=== PATIENT | female | born 1955 | race Two or more races ===

== ENCOUNTER 2019-02-08 16:32 | Inpatient (IN) | payer MEDICARE, OTHER ==
[~2019-02-08] VITALS: Ht 157.5 cm; Wt 83.9 kg
[2019-02-08 17:20] VITALS: BP 137/72
--- NOTE | 2019-02-08 17:20 | NUR ---
ED Nurse Note: Patient was sent by Dr. Singh for eval and admit for abd pain and vomiting. Lower back pain and rash. Patient is moaning in pain. Denies nausea and diarrhea. Afebrile. No SOB.
--- NOTE | 2019-02-08 18:15 | NUR ---
ED Nurse Note: Pt taken for CT.
--- NOTE | 2019-02-08 18:35 | NUR ---
ED Nurse Note: Pt came back from CT.
[2019-02-08 18:52] LABS: APPEARANCE,URINE CLEAR; BILIRUBIN, URINE NEGATIVE (NEGATIVE); COLOR,URINE PALE YELLOW; GLUCOSE, URINE (UA) NEGATIVE (NEGATIVE); KETONES,URINE NEGATIVE (NEGATIVE); LEUKOCYTE ESTERASE ,URINE 2+ (NEGATIVE); NITRITE,URINE NEGATIVE (NEGATIVE); PH,URINE 6 (4.5-8.0); PROTEIN,URINE NEGATIVE (NEGATIVE); UROBILINOGEN,URINE NORMAL MG/DL (0.0-1.0)
[2019-02-08 18:55] LABS: BASOPHILS % (AUTO) 2.1 % (0.0-2.0); EOSINOPHILS % (AUTO) 1.5 % (0.0-3.0); HEMATOCRIT 39.3 % (37.0-47.0); LYMPHOCYTES % (AUTO) 30.1 % (20.0-45.0); MEAN CORPUSCULAR VOLUME 87 FL (80-99); MONOCYTES % (AUTO) 6.1 % (1.0-10.0); NEUTROPHILS % (AUTO) 60.1 % (45.0-75.0); PLATELET COUNT 184 K/UL (150-450); RED BLOOD COUNT 4.53 M/UL (4.20-5.40); WHITE BLOOD COUNT 9.8 K/UL (4.8-10.8)
[2019-02-08] MEDS ORDERED: LIDODERM700 M1 TOPIC (19:06)
[2019-02-08] MEDS ORDERED: ALPRAZOLAM1 M2 ORAL (19:06)
[2019-02-08] MEDS ORDERED: BACLOFEN10 MG ORAL (19:06)
[2019-02-08] MEDS ORDERED: SEROQUEL50 MG ORAL (19:06)
[2019-02-08] MEDS ORDERED: BACLOFEN5 MG PO (19:06)
[2019-02-08] MEDS ORDERED: ACETAMINOPHEN650 M2 ORAL (19:06)
[2019-02-08 19:08] LABS: ANION GAP 11 mmol/L (5-15); BLOOD UREA NITROGEN 15 mg/dL (7-18); CALCIUM 8.8 MG/DL (8.5-10.1); CARBON DIOXIDE 25 MMOL/L (21-32); CHLORIDE 104 MMOL/L (98-107); CREATININE 0.7 MG/DL (0.55-1.30); POTASSIUM 3.9 MMOL/L (3.5-5.1); SODIUM 140 MMOL/L (136-145)
[2019-02-08 19:12] LABS: ALANINE AMINOTRANSFERASE 33 U/L (12-78); ALBUMIN 3.9 G/DL (3.4-5.0); ALBUMIN/GLOBULIN RATIO 1.2 (1.0-2.7); ALKALINE PHOSPHATASE 84 U/L (46-116); ASPARTATE AMINO TRANSFERASE 22 U/L (15-37); BILIRUBIN,TOTAL 0.5 MG/DL (0.2-1.0)
--- NOTE | 2019-02-08 19:21 | NUR ---
HAND-OFF: Report given to Trish SANTIAGO.
[2019-02-08 19:30] VITALS: BP 132/72
[2019-02-08] MEDS ORDERED: HYDROmorphone 1mg/ml Carpuject ONE (19:45)
[2019-02-08] MEDS ORDERED: HYDROmorphone 1mg/ml Carpuject IVP ONE (19:45)
[2019-02-08] MEDS ORDERED: DiphenhydrAMINE 50mg/ml Inj IVP ONE (19:45)
[2019-02-08] MEDS ORDERED: DiphenhydrAMINE 50mg/ml Inj ONE (19:46)
--- NOTE | 2019-02-08 20:07 | Emergency Room Report ---
History of Present Illness General Chief Complaint: General Complaint Source: Patient Present Illness HPI Patient presents with complaints of mid abdominal pain bloating sensation Patient reports that she has had stenting done before in the pancreas where there was seen as having a cyst patient has been having Abdominal problems for the past 3 to 4 years however reports that more recently over the past several days has had increased pain Vomiting denies any lower abdominal pain She reports chills denies any focal weakness or trauma Allergies: Coded Allergies: ACETAMINOPHEN (Verified Allergy, Unknown, 02/08/19) ARIPIPRAZOLE (Verified Allergy, Unknown, 02/08/19) FLUOXETINE (Verified Allergy, Unknown, 02/08/19) HYDROCODONE (Verified Allergy, Unknown, 02/08/19) IBUPROFEN (Verified Allergy, Unknown, 02/08/19) NITROFURANTOIN (Verified Allergy, Unknown, 02/08/19) OXYCODONE (Verified Allergy, Unknown, 02/08/19) PREGABALIN (Verified Allergy, Unknown, 02/08/19) Patient History Past Medical History: see triage record Reviewed Nursing Documentation: PMH: Agreed; PSxH: Agreed Nursing Documentation-PMH Past Medical History: No History, Except For Hx Cardiac Problems: No - diverticilois pancriatitis prolapsed colon and bladder Hx Hypertension: No - fibromyalgia spinal stenosis. 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 Review of Systems All Other Systems: negative except mentioned in HPI Physical Exam Vital Signs Date Time Temp Pulse Resp B/P (MAP) Pulse Ox O2 Delivery O2 Flow Rate FiO2 02/08/19 17:14 98.1 59 18 137/72 (93) 95 Room Air Sp02 EP Interpretation: reviewed, normal General Appearance: mild distress - Appears in pain Head: normocephalic, atraumatic Eyes: bilateral eye PERRL ENT: EOM grossly intact Neck: supple Respiratory: lungs clear, no respiratory distress, no retraction Cardiovascular #1: regular rate, rhythm Gastrointestinal: tenderness - Mid abdominal and epigastric region Genitourinary: no CVA tenderness Musculoskeletal: normal inspection Neurologic: alert, oriented x3 Psychiatric: normal inspection Skin: no rash Lymphatic: no adenopathy Medical Decision Making Diagnostic Impression: Primary Impression: Pancreatitis ER Course With the history exam and presentation, multiple differentials considered, including but not limited to appendicitis, gastritis, cholecystitis, diverticulitis Patient's blood work reveals elevated lipase count CT imaging is also obtained Patient's pain is better controlled with pain medication and patient admitted for further care Labs Test 02/08/19 18:26 White Blood Count 9.8 K/UL (4.8-10.8) Red Blood Count 4.53 M/UL (4.20-5.40) Hemoglobin 14.0 G/DL (12.0-16.0) Hematocrit 39.3 % (37.0-47.0) Mean Corpuscular Volume 87 FL (80-99) Mean Corpuscular Hemoglobin 30.9 PG (27.0-31.0) Mean Corpuscular Hemoglobin Concent 35.5 G/DL (32.0-36.0) Red Cell Distribution Width 11.0 % (11.6-14.8) Platelet Count 184 K/UL (150-450) Mean Platelet Volume 7.9 FL (6.5-10.1) Neutrophils (%) (Auto) 60.1 % (45.0-75.0) Lymphocytes (%) (Auto) 30.1 % (20.0-45.0) Monocytes (%) (Auto) 6.1 % (1.0-10.0) Eosinophils (%) (Auto) 1.5 % (0.0-3.0) Basophils (%) (Auto) 2.1 % (0.0-2.0) Urine Color Pale yellow Urine Appearance Clear Urine pH 6 (4.5-8.0) Urine Specific [place] 1.015 (1.005-1.035) Urine Protein Negative (NEGATIVE) Urine Glucose (UA) Negative (NEGATIVE) Urine Ketones Negative (NEGATIVE) Urine Blood 3+ (NEGATIVE) Urine Nitrite Negative (NEGATIVE) Urine Bilirubin Negative (NEGATIVE) Urine Urobilinogen Normal MG/DL (0.0-1.0) Urine Leukocyte Esterase 2+ (NEGATIVE) Urine RBC 2-4 /HPF (0 - 2) Urine WBC 0-2 /HPF (0 - 2) Urine Squamous Epithelial Cells Occasional /LPF Urine Bacteria Occasional /HPF (NONE) Sodium Level 140 MMOL/L (136-145) Potassium Level 3.9 MMOL/L (3.5-5.1) Chloride Level 104 MMOL/L (98-107) Carbon Dioxide Level 25 MMOL/L (21-32) Anion Gap 11 mmol/L (5-15) Blood Urea Nitrogen 15 mg/dL (7-18) Creatinine 0.7 MG/DL (0.55-1.30) Estimat Glomerular Filtration Rate > 60 mL/min (>60) Glucose Level 90 MG/DL (74-106) Calcium Level 8.8 MG/DL (8.5-10.1) Total Bilirubin 0.5 MG/DL (0.2-1.0) Aspartate Amino Transf (AST/SGOT) 22 U/L (15-37) Alanine Aminotransferase (ALT/SGPT) 33 U/L (12-78) Alkaline Phosphatase 84 U/L (46-116) Total Protein 7.1 G/DL (6.4-8.2) Albumin 3.9 G/DL (3.4-5.0) Globulin 3.2 g/dL Albumin/Globulin Ratio 1.2 (1.0-2.7) Lipase 961 U/L (73-393) Rhythm Strip Diag. Results EP Interpretation: yes Rate: 77 Rhythm: NSR, no PVC's, no ectopy CT/MRI/US Diagnostic Results CT/MRI/US Diagnostic Results : Impression CT abdomen pelvisImpression: No definite acute abnormality Fatty liver 4 mm nodule right costophrenic sulcus. No further follow-up necessary if there is no significant smoking history or risk factors for lung carcinoma. Recommend 6-12 month interval follow-up CT if there is significant smoking history Colonic diverticulosis. No evidence of diverticulitis Evidence of prior hysterectomy and cholecystectomy Tiny left renal angiomyolipoma Last Vital Signs Date Time Temp Pulse Resp B/P (MAP) Pulse Ox O2 Delivery O2 Flow Rate FiO2 02/08/19 17:20 59 18 Room Air 02/08/19 17:20 98.1 137/72 95 Status: improved Disposition: ADMITTED INPATIENT Condition: Serious Referrals: Yamil Singh MD (PCP) Corie Carrion DO Feb 08, 2019 20:07
--- NOTE | 2019-02-08 21:16 | NUR ---
ED Nurse Note: report given to Sarbjit SANTIAGO. endorsed all plan of care to him.
--- NOTE | 2019-02-08 21:30 | NUR ---
NURSE NOTES: Received patient via gurney. A/O x4. Ambulatory with assist. Patient reports pain in the abdominal area radiating to the lower back. Patient is on room air. No respiratory distress noted. Belongings list verified. Iv in the Left hand intact with no redness or swelling.
[2019-02-08 21:35] VITALS: BP 159/78
[2019-02-08] MEDS ORDERED: LORazepam Inj 2mg/ml 1ml IV PRN (22:30)
[2019-02-08] MEDS ORDERED: Nitroglycerin Subl 0.4mg tab SL PRN (22:30)
[2019-02-08] MEDS ORDERED: DiphenhydrAMINE 50mg/ml Inj IVP PRN (23:15)
[2019-02-08] MEDS: D5 1/2NS 1,000 ML IV SCH (23:32)
[2019-02-08] MEDS: Miralax 17gm pkt ORAL PRN (23:36)
[2019-02-08] MEDS: HYDROmorphone 1mg/ml Carpuject IVP PRN (23:41)
[2019-02-09] VITALS: BP 136/67
[2019-02-09] MEDS: HYDROmorphone 1mg/ml Carpuject IVP PRN ×2 (03:41→20:06)
[2019-02-09 03:49] VITALS: BP 120/63
[2019-02-09] MEDS: Pantoprazole Inj IV SCH (05:34)
[2019-02-09] MEDS: Hydromorphone 0.5mg/0.5ml inj IVP PRN ×3 (05:37→15:13)
[2019-02-09 06:03] LABS: BASOPHILS % (AUTO) 1.5 % (0.0-2.0); HEMATOCRIT 36.9 % (37.0-47.0); HEMOGLOBIN 13.3 G/DL (12.0-16.0); LYMPHOCYTES % (AUTO) 36.2 % (20.0-45.0); MEAN CORPUSCULAR VOLUME 87 FL (80-99); MONOCYTES % (AUTO) 10.9 % (1.0-10.0); NEUTROPHILS % (AUTO) 49.5 % (45.0-75.0); PLATELET COUNT 151 K/UL (150-450); RED BLOOD COUNT 4.24 M/UL (4.20-5.40); RED CELL DISTRIBUTION WIDTH 11.1 % (11.6-14.8); WHITE BLOOD COUNT 5.9 K/UL (4.8-10.8)
[2019-02-09 06:13] LABS: ALANINE AMINOTRANSFERASE 29 U/L (12-78); ALBUMIN 3.4 G/DL (3.4-5.0); ALKALINE PHOSPHATASE 71 U/L (46-116); AMYLASE 115 U/L (25-115); ANION GAP 7 mmol/L (5-15); ANION GAP 8 mmol/L (5-15); ASPARTATE AMINO TRANSFERASE 20 U/L (15-37); BILIRUBIN,TOTAL 0.5 MG/DL (0.2-1.0); BLOOD UREA NITROGEN 12 mg/dL (7-18); BLOOD UREA NITROGEN 13 mg/dL (7-18); CALCIUM 8.5 MG/DL (8.5-10.1); CALCIUM 8.6 MG/DL (8.5-10.1); CARBON DIOXIDE 27 MMOL/L (21-32); CARBON DIOXIDE 28 MMOL/L (21-32); CHLORIDE 105 MMOL/L (98-107); CHLORIDE 106 MMOL/L (98-107); CREATININE 0.7 MG/DL (0.55-1.30); PHOSPHORUS 4.2 MG/DL (2.5-4.9); POTASSIUM 3.8 MMOL/L (3.5-5.1); POTASSIUM 4.1 MMOL/L (3.5-5.1); SODIUM 140 MMOL/L (136-145); SODIUM 141 MMOL/L (136-145)
--- NOTE | 2019-02-09 07:30 | NUR ---
HAND-OFF: Report given to Malinda SANTIAGO.
--- NOTE | 2019-02-09 07:34 | NUR ---
NURSE NOTES: Pt complaining of pain as sheet writer entered room. " I feel like shit; I a have been throwing up all night my neck hurts" Per report pt vomited x 1 . Has a small amount of vomitus, at bed side yellow in color no odor. Current plan will be followed
[2019-02-09 08:00] VITALS: BP 131/66
[2019-02-09] MEDS: ALPRAZolam 0.5mg tab ORAL PRN ×2 (08:53→17:10)
[2019-02-09] MEDS: Metoclopramide 10mg/2ml Inj IVP PRN ×2 (08:54→17:10)
[2019-02-09] MEDS: Heparin 5000 units/ml inj SUBQ SCH ×2 (09:00→20:18)
--- NOTE | 2019-02-09 09:28 | Diagnostic Imaging Report ---
Indication: Abdominal pain and vomiting Technique: Spiral acquisitions obtained through the abdomen and pelvis. No oral contrast utilized, per emergency room physician request No IV contrast utilized, per referring physician request.. Multiplanar reconstructions were generated. Total dose length product 1304 mGycm. CTDIvol(s) 24 mGy. Dose reduction achieved using automated exposure control Comparison: None none Findings: The appendix is normal. There are colonic diverticula. No evidence of acute diverticulitis. No small bowel distention. No free or loculated intraperitoneal gas or fluid is evident. The distal esophagus, stomach, duodenum are unremarkable. Lack of IV contrast limits assessment of the solid organs. The liver is mildly hypoattenuating diffusely. No focal abnormality. The gallbladder has been removed. No biliary ductal dilatation. The pancreas, spleen, adrenals, kidneys are unremarkable. Subsequent sonogram demonstrates a left renal cyst. This is not clearly visible on noncontrast CT although may be subtly evident in the lower pole. There is suggestion of a tiny lower pole angiomyolipoma which is evident on subsequent sonogram. The uterus has been removed. No pelvic mass or adenopathy. No retroperitoneal or mesenteric mass or adenopathy. The bladder is nondistended. The included lung bases demonstrate a 4 mm subpleural nodule in the right costophrenic sulcus. The bones demonstrate degenerative spondylosis changes Impression: No definite acute abnormality Fatty liver 4 mm nodule right costophrenic sulcus. No further follow-up necessary if there is no significant smoking history or risk factors for lung carcinoma. Recommend 6-12 month interval follow-up CT if there is significant smoking history Colonic diverticulosis. No evidence of diverticulitis Evidence of prior hysterectomy and cholecystectomy Tiny left renal angiomyolipoma This agrees with the preliminary interpretation provided overnight by [facility] teleradiology service. The CT scanner at [facility] is accredited by the [employer] and the scans are performed using protocols designed to limit radiation exposure to as low as reasonably achievable to attain images of sufficient resolution adequate for diagnostic evaluation.
--- NOTE | 2019-02-09 11:35 | Diagnostic Imaging Report ---
Indication: Abdominal pain Technique: Capps-scale and duplex images of the upper abdomen were obtained Comparison: Abdomen and pelvic CT scan from earlier the same day Findings: Gallbladder has been removed Common bile duct measures 6 mm in diameter. No intrahepatic biliary ductal dilatation. Liver is somewhat enlarged, demonstrates slightly increased echogenicity. Portal vein and hepatic veins are patent. Pancreas is unremarkable. Note that the pancreatic duct is mildly ectatic. Spleen is unremarkable. Left kidney measures 10.7 cm in length. Right kidney measures 10.6 cm length. Both kidneys demonstrate normal echogenicity. There is no hydronephrosis. There is a 1.5 cm left lower pole cyst demonstrated. Tiny echogenic focus in the interpolar region of the left renal sinus measures 6 mm in diameter . Non-aneurysmal abdominal aorta . Impression: Hepatomegaly. Increased hepatic echogenicity compatible with fatty change, also demonstrated on recent CT scan Status post cholecystectomy. Negative for dilated bile ducts Tiny echogenic focus in the left renal sinus likely represent small angiomyolipoma demonstrated on CT scan. Small left renal cyst was occult on CT. Nonspecific prominence to the pancreatic duct
[2019-02-09 12:00] VITALS: BP 130/63
--- NOTE | 2019-02-09 13:16 | Consultation ---
History of Present Illness General Chief Complaint: General Complaint Reason for Consultation: pulmonary nodule Present Illness HPI 63 year old female with hx of fibromyalgia, spinal stenosis, diverticulosis, pancreatitis, with some kind of stent placement presented to ER with complaints of mid abdominal pain, bloating sensation more recently over the past several days. She reports chills as well. Allergies: Coded Allergies: ACETAMINOPHEN (Verified Allergy, Unknown, 02/08/19) ARIPIPRAZOLE (Verified Allergy, Unknown, 02/08/19) FLUOXETINE (Verified Allergy, Unknown, 02/08/19) HYDROCODONE (Verified Allergy, Unknown, 02/08/19) IBUPROFEN (Verified Allergy, Unknown, 02/08/19) NITROFURANTOIN (Verified Allergy, Unknown, 02/08/19) OXYCODONE (Verified Allergy, Unknown, 02/08/19) PREGABALIN (Verified Allergy, Unknown, 02/08/19) Medication History Scheduled Acetaminophen (Acetaminophen 8 Hour), 650 MG ORAL Q6H, (Reported) Alprazolam (Alprazolam), 1 MG ORAL TID, (Reported) Baclofen* (Baclofen*), 10 MG ORAL THREE TIMES A DAY, (Reported) Lidocaine Patch* (Lidoderm Patch*), 1 PATCH TOPIC DAILY, (Reported) Quetiapine Fumarate (Seroquel), 50 MG ORAL DAILY, (Reported) Miscellaneous Medications Baclofen (Baclofen), 5 MG PO, (Reported) Baclofen (Baclofen), 5 MG PO, (Reported) Patient History Healthcare decision maker N Resuscitation status Advanced Directive on File Past Medical/Surgical History Past Medical/Surgical History: (1) Pancreatitis (2) Fibromyalgia (3) Spinal stenosis (4) Diverticulosis Review of Systems All Other Systems: negative except mentioned in HPI Physical Exam General Appearance: WD/WN Lines, tubes and drains: peripheral HEENT: normocephalic, atraumatic Neck: non-tender, normal alignment Respiratory/Chest: chest wall non-tender, lungs clear Breasts: no masses Cardiovascular/Chest: normal rate Extremities: normal range of motion, non-tender Skin Exam: normal pigmentation Last 24 Hour Vital Signs Date Time Temp Pulse Resp B/P (MAP) Pulse Ox O2 Delivery O2 Flow Rate FiO2 02/09/19 09:00 Room Air 02/09/19 08:00 97.8 89 18 131/66 (87) 97 02/09/19 03:49 97.8 82 18 120/63 (82) 96 02/09/19 00:00 98.1 59 18 136/67 (90) 97 02/08/19 22:08 Room Air 02/08/19 21:35 97.7 58 19 159/78 (105) 97 02/08/19 21:16 98.1 62 16 132/72 97 Room Air 02/08/19 20:39 98.1 02/08/19 19:30 98.1 62 16 132/72 97 Room Air 02/08/19 17:20 59 18 Room Air 02/08/19 17:20 98.1 59 18 137/72 95 Room Air 02/08/19 17:14 98.1 59 18 137/72 (93) 95 Room Air Intake and Output 02/08/19 02/09/19 19:00 07:00 Intake Total 525 ml Balance 525 ml Intake IV Total 525 ml # Voids 1 4 Laboratory Tests Test 02/08/19 18:26 02/09/19 05:05 White Blood Count 9.8 K/UL (4.8-10.8) 5.9 K/UL (4.8-10.8) Red Blood Count 4.53 M/UL (4.20-5.40) 4.24 M/UL (4.20-5.40) Hemoglobin 14.0 G/DL (12.0-16.0) 13.3 G/DL (12.0-16.0) Hematocrit 39.3 % (37.0-47.0) 36.9 % (37.0-47.0) L Mean Corpuscular Volume 87 FL (80-99) 87 FL (80-99) Mean Corpuscular Hemoglobin 30.9 PG (27.0-31.0) 31.3 PG (27.0-31.0) H Mean Corpuscular Hemoglobin Concent 35.5 G/DL (32.0-36.0) 35.9 G/DL (32.0-36.0) Red Cell Distribution Width 11.0 % (11.6-14.8) L 11.1 % (11.6-14.8) L Platelet Count 184 K/UL (150-450) 151 K/UL (150-450) Mean Platelet Volume 7.9 FL (6.5-10.1) 7.9 FL (6.5-10.1) Neutrophils (%) (Auto) 60.1 % (45.0-75.0) 49.5 % (45.0-75.0) Lymphocytes (%) (Auto) 30.1 % (20.0-45.0) 36.2 % (20.0-45.0) Monocytes (%) (Auto) 6.1 % (1.0-10.0) 10.9 % (1.0-10.0) H Eosinophils (%) (Auto) 1.5 % (0.0-3.0) 2.0 % (0.0-3.0) Basophils (%) (Auto) 2.1 % (0.0-2.0) H 1.5 % (0.0-2.0) Urine Color Pale yellow Urine Appearance Clear Urine pH 6 (4.5-8.0) Urine Specific [place] 1.015 (1.005-1.035) Urine Protein Negative (NEGATIVE) Urine Glucose (UA) Negative (NEGATIVE) Urine Ketones Negative (NEGATIVE) Urine Blood 3+ (NEGATIVE) H Urine Nitrite Negative (NEGATIVE) Urine Bilirubin Negative (NEGATIVE) Urine Urobilinogen Normal MG/DL (0.0-1.0) Urine Leukocyte Esterase 2+ (NEGATIVE) H Urine RBC 2-4 /HPF (0 - 2) H Urine WBC 0-2 /HPF (0 - 2) Urine Squamous Epithelial Cells Occasional /LPF Urine Bacteria Occasional /HPF (NONE) Sodium Level 140 MMOL/L (136-145) 141 MMOL/L (136-145) Potassium Level 3.9 MMOL/L (3.5-5.1) 4.1 MMOL/L (3.5-5.1) Chloride Level 104 MMOL/L (98-107) 106 MMOL/L (98-107) Carbon Dioxide Level 25 MMOL/L (21-32) 27 MMOL/L (21-32) Anion Gap 11 mmol/L (5-15) 8 mmol/L (5-15) Blood Urea Nitrogen 15 mg/dL (7-18) 13 mg/dL (7-18) Creatinine 0.7 MG/DL (0.55-1.30) 0.7 MG/DL (0.55-1.30) Estimat Glomerular Filtration Rate > 60 mL/min (>60) > 60 mL/min (>60) Glucose Level 90 MG/DL (74-106) 118 MG/DL (74-106) H Calcium Level 8.8 MG/DL (8.5-10.1) 8.6 MG/DL (8.5-10.1) Total Bilirubin 0.5 MG/DL (0.2-1.0) 0.5 MG/DL (0.2-1.0) Aspartate Amino Transf (AST/SGOT) 22 U/L (15-37) 20 U/L (15-37) Alanine Aminotransferase (ALT/SGPT) 33 U/L (12-78) 29 U/L (12-78) Alkaline Phosphatase 84 U/L (46-116) 71 U/L (46-116) Total Protein 7.1 G/DL (6.4-8.2) 6.9 G/DL (6.4-8.2) Albumin 3.9 G/DL (3.4-5.0) 3.4 G/DL (3.4-5.0) Globulin 3.2 g/dL 3.5 g/dL Albumin/Globulin Ratio 1.2 (1.0-2.7) 1.0 (1.0-2.7) Lipase 961 U/L (73-393) H 249 U/L (73-393) Activated Partial Thromboplast Time 27 SEC (23-33) Phosphorus Level 4.2 MG/DL (2.5-4.9) Magnesium Level 2.0 MG/DL (1.8-2.4) Amylase Level 115 U/L (25-115) Height (Feet): 5 Height (Inches): 2.00 Weight (Pounds): 185 Medications Current Medications Medications (Trade) Dose Ordered Sig/Damaris Route PRN Reason Start Time Stop Time Status Last Admin Dose Admin Acetaminophen (Tylenol) 650 mg Q6H PRN ORAL Mild Pain/Temp > 100.5 02/08/19 23:15 03/10/19 23:14 Alprazolam (Xanax) 1 mg THREE TIMES A DAY PRN ORAL For Anxiety 02/08/19 23:15 02/15/19 23:14 02/09/19 08:53 Baclofen (Lioresal) 10 mg THREE TIMES A DAY PRN ORAL Muscle Spasm 02/08/19 23:15 03/10/19 23:14 Dextrose (Dextrose 50%) 25 ml Q30M PRN IV Hypoglycemia 02/08/19 22:30 03/10/19 22:29 Dextrose (Dextrose 50%) 50 ml Q30M PRN IV Hypoglycemia 02/08/19 22:30 03/10/19 22:29 Dextrose/Sodium Chloride 1,000 ml @ 75 mls/hr [id number] IV 02/08/19 22:21 03/10/19 22:20 02/08/19 23:32 Diphenhydramine HCl (Benadryl) 25 mg Q4HR PRN IVP Itching 02/08/19 23:15 03/10/19 23:14 Diphenhydramine HCl (Benadryl) 25 mg Q6H PRN ORAL Itching/Pruritis 02/08/19 22:30 03/10/19 22:29 Heparin Sodium (Porcine) (Heparin 5000 units/ml) 5,000 units EVERY 12 HOURS SUBQ 02/09/19 09:00 03/11/19 08:59 Hydromorphone HCl (Dilaudid) 0.5 mg Q4H PRN IVP Moderate Pain (Pain Scale 4-6) 02/08/19 23:15 02/15/19 23:14 02/09/19 11:16 Hydromorphone HCl (Dilaudid) 1 mg Q4H PRN IVP Severe Pain (Pain Scale 7-10) 02/08/19 23:15 02/15/19 23:14 02/09/19 03:41 Lidocaine (Lidoderm 5% PATCH) 1 patch DAILY TDERMAL 02/09/19 09:00 03/11/19 08:59 02/09/19 08:54 Lorazepam (Ativan 2mg/ml 1ml) 1 mg EVERY 4 HOURS PRN IV agitation 02/08/19 22:30 02/15/19 22:29 Metoclopramide HCl (Reglan) 10 mg EVERY 6 HOURS PRN IVP servere nauasea 02/08/19 22:30 03/10/19 22:29 02/09/19 08:54 Nitroglycerin (Ntg) 0.4 mg Q5M X 3 DOSES PRN SL Prn Chest Pain 02/08/19 22:30 03/10/19 22:29 Ondansetron HCl (Zofran) 4 mg Q6H PRN IVP Nausea & Vomiting 02/08/19 22:30 03/10/19 22:29 02/09/19 05:41 Pantoprazole (Protonix) 40 mg ACBREAKFAST IV 02/09/19 06:30 03/11/19 06:29 02/09/19 05:34 Polyethylene Glycol (Miralax) 17 gm HSPRN PRN ORAL Constipation 02/08/19 22:30 03/10/19 22:29 02/08/19 23:36 Promethazine HCl (Phenergan) 25 mg Q6H PRN IM Refractory N/V 02/08/19 22:30 02/13/19 22:29 02/08/19 23:34 Quetiapine Fumarate (SEROqueL) 200 mg BEDTIME ORAL 02/09/19 21:00 03/11/19 20:59 Temazepam (Restoril) 15 mg HSPRN PRN ORAL Insomnia 02/08/19 22:30 02/15/19 22:29 Assessment/Plan Problem List: (1) Abdominal pain ICD Codes: R10.9 - Unspecified abdominal pain SNOMED: 87946213 (2) Pulmonary nodule ICD Codes: R91.1 - Solitary pulmonary nodule SNOMED: 125955958 (3) Recurrent pancreatitis ICD Codes: K85.90 - Acute pancreatitis without necrosis or infection, unspecified SNOMED: 229677797 (4) Fibromyalgia ICD Codes: M79.7 - Fibromyalgia SNOMED: 834396876 (5) Spinal stenosis ICD Codes: M48.00 - Spinal stenosis, site unspecified SNOMED: 90336142 (6) Diverticulosis ICD Codes: K57.90 - Diverticulosis of intestine, part unspecified, without perforation or abscess without bleeding SNOMED: 323801054 Assessment/Plan: NPO iv fluids GI evaluation symptomatic treatment check electrolytes pain management antiemetics Frankie Gilmore MD Feb 09, 2019 13:16
[2019-02-09] MEDS: D5 1/2NS 1,000 ML IV SCH (13:22)
--- NOTE | 2019-02-09 14:55 | NUR ---
NURSE NOTES: Pt currently sleeping, provided with antiemetic medicine times 2. Pt states her neck was feeling tight Baclofen given. Seen by Myrtle earlier in shift. Ate a small amount of food had an episode small emesis.
--- NOTE | 2019-02-09 15:36 | NUR ---
CASE MANAGEMENT:REVIEW 63 YR OLD FEMALE PRESENTED TO ER SI: ABDOMINAL PAIN. VOMITING. PANCREATITIS 98.1 59 18 137/72 95% ON RA LIPASE+961 IS: IV DILAUDID IV BENADRYL IV ZOFRAN CT ABD/PELVIS : TO MED/SURG [facility]
--- NOTE | 2019-02-09 15:59 | History & Physical ---
History and Physical History & Physicial Yamil Singh MD Feb 09, 2019 15:59
[2019-02-09 16:00] VITALS: BP 137/88
[2019-02-09] MEDS: Miralax 17gm pkt ORAL PRN (17:12)
--- NOTE | 2019-02-09 19:11 | NUR ---
NURSE NOTES: Pt has child like bx anxious taking off gown , " I am hot" Work order in place and came to room. Pt complained of feeling anxious Xanax given. Pt had a small BM called nurse to room to look at BM " look it looks like a snake" Small and thin bm
--- NOTE | 2019-02-09 19:24 | NUR ---
NURSE NOTES: Pt currently sleeping, Call light is in reach. Pt continues on Clear Liquid diet. States she felt anxious, xanax effective. Pt concern with pain was to the right upper quadrant, Miralax given for ineffective bm . Pt stated it was difficult for her to have a BM. Is able to verbalize known needs. Current plan will be followed
--- NOTE | 2019-02-09 19:27 | NUR ---
HAND-OFF: Report given to Saúl endorsed pt order for Seroquel per pt she takes Seroquel twice a day. .
[2019-02-09 20:00] VITALS: BP 134/88
--- NOTE | 2019-02-09 20:00 | NUR ---
NURSES NOTE: Met pt in bed, awake, communicative and able to let needs be known. A/OX4, no s/s of distress noted. Breathing pattern is even and unlabored on RA. Pt states she has pain 8/10 pain in abdominal area. All due medications will be given including prn pain medications. IV 22 gauge L hand is intact, with no signs of infection/infiltration. Pt is on clear liquid diet. Bed at lowest level, call light within reach. Pt will continue to be monitored.
[2019-02-09] MEDS ORDERED: Miralax 17gm pkt ORAL SCH (21:00)
--- NOTE | 2019-02-09 21:00 | Consultation ---
DATE OF CONSULTATION: 02/08/2019 CHIEF COMPLAINT: Abdominal pain. HISTORY OF PRESENT ILLNESS: This is a very pleasant 63-year-old female with numerous medical problems which I will dictate in a second. She has history of multiple pancreatitis. She has been followed at [facility] by and his team. Last ERCP was done in December of 2018. She had sphincterotomy and balloon sweep. No stent was placed on last admission at [facility]. The patient was readmitted again to the hospital complaining of nausea, vomiting, abdominal pain. PAST MEDICAL HISTORY: 1. History of pancreatitis. 2. Fibromyalgia. 3. Spinal stenosis. 4. Diverticulosis. 5. Anxiety. 6. Pancreatic cyst. 7. Rectal prolapse. 8. History of gallstones. PAST SURGICAL HISTORY: Cholecystectomy, spinal surgeries. ALLERGIES: See the allergy list. The patient has allergies to many medications. SOCIAL HISTORY: The patient denies any tobacco, alcohol, or drug abuse. FAMILY HISTORY: Noncontributory. REVIEW OF SYSTEMS: A 10-point review of systems was performed and pertinent positives in HPI. PHYSICAL EXAMINATION: VITAL SIGNS: Temperature 97.8, pulse 82, respirations 18, blood pressure 120/63. HEENT: Normocephalic and atraumatic. Sclerae anicteric. NECK: Supple. No evidence of obvious lymphadenopathy. CARDIOVASCULAR: Regular rate and rhythm. Plus S1 and S2. No obvious murmur. LUNGS: Clear to auscultation bilaterally. ABDOMEN: Positive bowel sounds. Soft. There is tenderness to palpation in the epigastric area. No rebound. No guarding. No peritoneal sign. EXTREMITIES: No cyanosis, no clubbing, no edema. LABORATORY DATA: White count 5.9, hemoglobin 13, hematocrit 36, platelet count is 151. Chem-7, sodium is 141, potassium 4.1. Lipase yesterday was 961 and today is 249. Amylase 115. ASSESSMENT: This is a 63-year-old female with recurrent pancreatitis which seems to be resolving. The etiology at this time is unknown. Given the patient's chronic history and multiple ERCP at [facility], we are not going to plan for another ERCP at this admission especially in the setting of normal liver enzymes and improving lipase. PLAN: Treat for pancreatitis with IV fluids. Pain management. Start clear liquid diet and advance as tolerated. Repeat labs for tomorrow. I want to thank, Dr. Singh, for this kind referral. Henrique Garcia M.D. DR: Alexys JOB#: [id number] CC: Yamil Singh M.D.; Fax#: [phone]
[2019-02-09] MEDS: QUEtiapine 200mg tab ORAL SCH (21:56)
--- NOTE | 2019-02-09 22:45 | History and Physical Report ---
DATE OF ADMISSION: 02/08/2019 CHIEF COMPLAINT: Abdominal pain. HISTORY OF PRESENT ILLNESS: This is a 63-year-old very delightful female with past medical history significant for fibromyalgia, spinal stenosis, status post lumbar spine surgery, history of diverticulosis, chronic pancreatitis, status post endoscopic retrograde cholangiopancreatography with stent placement, and history of bipolar disorder, who has presented to my office complaining about abdominal pain progressively worsened over the past 5 days associated with nausea and vomiting, unable to tolerate oral intake. The patient subsequently after initial evaluation was went to the [facility] Emergency Room the day before, had extensive workup done including a CT scan was unremarkable and the pain, however, was unbearable and the patient subsequently was advised to come to the emergency room. Shortly after initial evaluation in the [place] [facility], the patient was noted to have a lipase of 961 and subsequently, the patient was admitted to the hospital with acute on chronic pancreatitis. PAST MEDICAL HISTORY AND PAST SURGICAL HISTORY: Significant for chronic pancreatitis with pancreatic insufficiency, diverticulosis, lumbar spine stenosis, status post lumbar surgery, fibromyalgia, and bipolar disorder. MEDICATIONS AT HOME: Significant for acetaminophen, history of baclofen, alprazolam, lidocaine, Seroquel, and . ALLERGIES: Oxycodone and Lyrica. SOCIAL HISTORY: Denies any smoking, alcohol, or drugs. She is . FAMILY HISTORY: Noncontributory. REVIEW OF SYSTEMS: Mostly as above. Denies any dysuria, frequency, or hematuria. Complained about severe abdominal pain associated with nausea and vomiting. Denies any hemoptysis or hematochezia. Denies any suicidal or homicidal ideation. Denies any loss of consciousness. Denies any fall or head trauma. PHYSICAL EXAMINATION: VITAL SIGNS: On admission from the ER, temperature 98.1, pulse of 59, respirations 18, and blood pressure 137/72. GENERAL: The patient is awake, responsive, and in no acute distress. HEAD AND NECK: Pupils are reactive to light. Extraocular movements are intact. NECK: Supple. No jugular venous distention. LUNGS: Good air entry. No wheeze or rales. HEART: Reveals S1, S2. Regular rhythm. No gallops. ABDOMEN: Soft, mildly obese, and tender in the epigastric area. No rebound tenderness. No fluid shift. EXTREMITIES: No cyanosis, clubbing, or edema. NEUROLOGIC: Cranial nerves II through XII grossly intact. Moving all the 4 extremities. Gait is intact. RECTAL/GENITOURINARY: Refused and deferred. PSYCHIATRIC: Mood and affect is intact. LABORATORY DATA: Laboratory on admission WBC of 9.8, hemoglobin 14, hematocrit 39, and platelets is 184,000. Sodium 140, potassium 3.9, chloride 104, bicarb 25, BUN 15, creatinine 0.7, and glucose 90. Liver function essentially unremarkable. Amylase is 115, lipase is 960. PTT of 27. UA is +3 blood, +2 leukocytes, 2 to 4 rbc, and 0 to 2 wbc. The patient had a CT of the abdomen and pelvis done. No definitive acute abnormality. Fatty liver. A 4 mm nodule in the right costophrenic sulcus. No further followup necessary. The patient has no significant smoking history, colonic diverticulosis without evidence of diverticulitis. The patient had a prior history of hysterectomy and cholecystectomy. Tiny left renal angiolipoma. The patient had an ultrasound of the abdomen done. It showed hepatomegaly with increased hepatic echogenicity compatible with fatty changes also demonstrated on the recent CT scan, status post cholecystectomy. ASSESSMENT: 1. Abdominal pain, epigastric pain, most likely secondary to the acute on chronic pancreatitis. 2. Morbid obesity. 3. Fibromyalgia. 4. Lumbar spine stenosis. 5. History of bipolar disorder. PLAN: 1. Admit the patient to medical floor. 2. We will follow up laboratory. 3. Clear liquid diet. 4. We will hold off on antibiotics. 5. We will start the patient on pain management. 6. IV hydration. 7. Follow up with Dr. Gilmore in Pulmonary consultation due to the pulmonary lung nodule and gastrointestinal consultation. Code status is Full code. 8. We will advance the diet as tolerated. Yamil Singh M.D. DR: SARA JOB#: [id number] CC:
[2019-02-10] VITALS: BP 113/60
[2019-02-10] MEDS: D5 1/2NS 1,000 ML IV SCH ×2 (00:36→14:13)
--- NOTE | 2019-02-10 02:15 | NUR ---
NURSE NOTES: Receive a report from JACK Mcknight. Round is done. No acute distress noted but complains for abdominal pain, 7/10 with nausea sense. Provide medication as ordered. On SCDs L/E bilateral. Call light within reach. Will continue to monitor.
[2019-02-10] MEDS: HYDROmorphone 1mg/ml Carpuject IVP PRN ×5 (02:18→22:04)
[2019-02-10 04:00] VITALS: BP 110/81
[2019-02-10] MEDS: Pantoprazole Inj IV SCH (06:16)
--- NOTE | 2019-02-10 06:30 | NUR ---
NURSE NOTES: Abdominal pain increased. Provide pain medication as ordered. Will continue to monitor.
--- NOTE | 2019-02-10 07:20 | General Progress Note ---
Assessment/Plan Problem List: (1) Pancreatitis ICD Codes: K85.90 - Acute pancreatitis without necrosis or infection, unspecified SNOMED: 61199900 (2) Recurrent pancreatitis ICD Codes: K85.90 - Acute pancreatitis without necrosis or infection, unspecified SNOMED: 512004659 (3) Abdominal pain ICD Codes: R10.9 - Unspecified abdominal pain SNOMED: 41142383 (4) Pulmonary nodule ICD Codes: R91.1 - Solitary pulmonary nodule SNOMED: 281897925 (5) Fibromyalgia ICD Codes: M79.7 - Fibromyalgia SNOMED: 647039006 (6) Spinal stenosis ICD Codes: M48.00 - Spinal stenosis, site unspecified SNOMED: 15877540 (7) Diverticulosis ICD Codes: K57.90 - Diverticulosis of intestine, part unspecified, without perforation or abscess without bleeding SNOMED: 090277191 Assessment/Plan: [facility] records reviewed advance diet fu labs pain control bowel regimen Subjective ROS Limited/Unobtainable: Yes Allergies: Coded Allergies: ACETAMINOPHEN (Verified Allergy, Unknown, 02/08/19) ARIPIPRAZOLE (Verified Allergy, Unknown, 02/08/19) FLUOXETINE (Verified Allergy, Unknown, 02/08/19) HYDROCODONE (Verified Allergy, Unknown, 02/08/19) IBUPROFEN (Verified Allergy, Unknown, 02/08/19) NITROFURANTOIN (Verified Allergy, Unknown, 02/08/19) OXYCODONE (Verified Allergy, Unknown, 02/08/19) PREGABALIN (Verified Allergy, Unknown, 02/08/19) Objective Last 24 Hour Vital Signs Date Time Temp Pulse Resp B/P (MAP) Pulse Ox O2 Delivery O2 Flow Rate FiO2 02/10/19 04:00 97.8 58 18 110/81 (91) 96 02/10/19 00:00 97.5 55 18 113/60 (77) 95 02/09/19 21:00 Room Air 02/09/19 20:00 97.7 56 17 134/88 (103) 98 02/09/19 16:00 98.1 53 18 137/88 (104) 96 02/09/19 12:00 98.2 60 20 130/63 (85) 02/09/19 09:00 Room Air 02/09/19 08:00 97.8 89 18 131/66 (87) 97 Intake and Output 02/09/19 02/10/19 19:00 07:00 Intake Total 1125 ml 450 ml Balance 1125 ml 450 ml Intake Oral 300 ml IV Total 825 ml 450 ml # Voids 2 3 # Bowel Movements 2 Height (Feet): 5 Height (Inches): 2.00 Weight (Pounds): 185 General Appearance: alert EENT: normal ENT inspection Neck: supple Cardiovascular: normal rate Respiratory/Chest: lungs clear Abdomen: soft, hypoactive bowel sounds, tender Extremities: non-tender Henrique Garcia MD Feb 10, 2019 07:20
--- NOTE | 2019-02-10 07:40 | NUR ---
HAND-OFF: Report given to JACK Truong. Round is done.
--- NOTE | 2019-02-10 07:43 | Pulmonology Progress Note ---
Assessment/Plan Problems: (1) Pulmonary nodule (2) Abdominal pain (3) Recurrent pancreatitis (4) Fibromyalgia (5) Spinal stenosis (6) Diverticulosis Assessment/Plan on clear liquid pain better controlled check electrolytes symptomatic treatment advance diet as tolerated Subjective ROS Limited/Unobtainable: No Allergies: Coded Allergies: ACETAMINOPHEN (Verified Allergy, Unknown, 02/08/19) ARIPIPRAZOLE (Verified Allergy, Unknown, 02/08/19) FLUOXETINE (Verified Allergy, Unknown, 02/08/19) HYDROCODONE (Verified Allergy, Unknown, 02/08/19) IBUPROFEN (Verified Allergy, Unknown, 02/08/19) NITROFURANTOIN (Verified Allergy, Unknown, 02/08/19) OXYCODONE (Verified Allergy, Unknown, 02/08/19) PREGABALIN (Verified Allergy, Unknown, 02/08/19) Objective Last 24 Hour Vital Signs Date Time Temp Pulse Resp B/P (MAP) Pulse Ox O2 Delivery O2 Flow Rate FiO2 02/10/19 04:00 97.8 58 18 110/81 (91) 96 02/10/19 00:00 97.5 55 18 113/60 (77) 95 02/09/19 21:00 Room Air 02/09/19 20:00 97.7 56 17 134/88 (103) 98 02/09/19 16:00 98.1 53 18 137/88 (104) 96 02/09/19 12:00 98.2 60 20 130/63 (85) 02/09/19 09:00 Room Air 02/09/19 08:00 97.8 89 18 131/66 (87) 97 Intake and Output 02/09/19 02/10/19 19:00 07:00 Intake Total 1125 ml 450 ml Balance 1125 ml 450 ml Intake Oral 300 ml IV Total 825 ml 450 ml # Voids 2 3 # Bowel Movements 2 Objective General Appearance: WD/WN Lines, tubes and drains: peripheral HEENT: normocephalic, atraumatic Neck: non-tender, normal alignment Respiratory/Chest: chest wall non-tender, lungs clear Cardiovascular/Chest: normal rate Extremities: normal range of motion, non-tender Skin Exam: normal pigmentation Current Medications Medications (Trade) Dose Ordered Sig/Damaris Route PRN Reason Start Time Stop Time Status Last Admin Dose Admin Acetaminophen (Tylenol) 650 mg Q6H PRN ORAL Mild Pain/Temp > 100.5 02/08/19 23:15 03/10/19 23:14 Alprazolam (Xanax) 1 mg THREE TIMES A DAY PRN ORAL For Anxiety 02/08/19 23:15 02/15/19 23:14 02/09/19 17:10 Baclofen (Lioresal) 10 mg THREE TIMES A DAY PRN ORAL Muscle Spasm 02/08/19 23:15 03/10/19 23:14 02/09/19 13:25 Dextrose (Dextrose 50%) 25 ml Q30M PRN IV Hypoglycemia 02/08/19 22:30 03/10/19 22:29 Dextrose (Dextrose 50%) 50 ml Q30M PRN IV Hypoglycemia 02/08/19 22:30 03/10/19 22:29 Dextrose/Sodium Chloride 1,000 ml @ 75 mls/hr [id number] IV 02/08/19 22:21 03/10/19 22:20 02/10/19 00:36 Diphenhydramine HCl (Benadryl) 25 mg Q4HR PRN IVP Itching 02/08/19 23:15 03/10/19 23:14 Diphenhydramine HCl (Benadryl) 25 mg Q6H PRN ORAL Itching/Pruritis 02/08/19 22:30 03/10/19 22:29 Heparin Sodium (Porcine) (Heparin 5000 units/ml) 5,000 units EVERY 12 HOURS SUBQ 02/09/19 09:00 03/11/19 08:59 02/09/19 20:18 Hydromorphone HCl (Dilaudid) 0.5 mg Q4H PRN IVP Moderate Pain (Pain Scale 4-6) 02/08/19 23:15 02/15/19 23:14 02/09/19 15:13 Hydromorphone HCl (Dilaudid) 1 mg Q4H PRN IVP Severe Pain (Pain Scale 7-10) 02/08/19 23:15 02/15/19 23:14 02/10/19 06:18 Lidocaine (Lidoderm 5% PATCH) 1 patch DAILY TDERMAL 02/09/19 09:00 03/11/19 08:59 02/09/19 08:54 Lorazepam (Ativan 2mg/ml 1ml) 1 mg EVERY 4 HOURS PRN IV agitation 02/08/19 22:30 02/15/19 22:29 Metoclopramide HCl (Reglan) 10 mg EVERY 6 HOURS PRN IVP servere nauasea 02/08/19 22:30 03/10/19 22:29 02/09/19 17:10 Nitroglycerin (Ntg) 0.4 mg Q5M X 3 DOSES PRN SL Prn Chest Pain 02/08/19 22:30 03/10/19 22:29 Ondansetron HCl (Zofran) 4 mg Q6H PRN IVP Nausea & Vomiting 02/08/19 22:30 03/10/19 22:29 02/10/19 02:17 Pantoprazole (Protonix) 40 mg ACBREAKFAST IV 02/09/19 06:30 03/11/19 06:29 02/10/19 06:16 Polyethylene Glycol (Miralax) 17 gm BID ORAL 02/10/19 09:00 03/10/19 22:29 Promethazine HCl (Phenergan) 25 mg Q6H PRN IM Refractory N/V 02/08/19 22:30 02/13/19 22:29 02/08/19 23:34 Quetiapine Fumarate (SEROqueL) 200 mg BEDTIME ORAL 02/09/19 21:00 03/11/19 20:59 02/09/19 21:56 Temazepam (Restoril) 15 mg HSPRN PRN ORAL Insomnia 02/08/19 22:30 02/15/19 22:29 Frankie Gilmore MD Feb 10, 2019 07:43
--- NOTE | 2019-02-10 07:45 | NUR ---
NURSE NOTES: Received report from Gho RN. Patient is awake and oriented, no acute distress noted, ambulating steadily, reporting abdominal pain rated 7/10, seen and examined this morning by Dr. Deirdre MD is aware of patient's continuous pain. Pain medication not due as of this time, patient educated that pain medication will be administered when due, patient verbalized understanding and agreement. IV intact, patent, running IVF per order. Patient updated on plan of care. Call light within reach.
[2019-02-10 08:00] VITALS: BP 156/93
[2019-02-10] MEDS: Miralax 17gm pkt ORAL SCH ×2 (08:56→17:55)
[2019-02-10] MEDS: Heparin 5000 units/ml inj SUBQ SCH ×2 (08:57→20:59)
[2019-02-10 12:00] VITALS: BP 145/81
[2019-02-10] MEDS: Metoclopramide 10mg/2ml Inj IVP PRN (13:27)
[2019-02-10] MEDS ORDERED: D5 1/2NS 1000ml IV ONE (13:40)
--- NOTE | 2019-02-10 15:18 | Internal Med Progress Note ---
Subjective Date of Service: Feb 10, 2019 Physician Name Poncho Cornejo Attending Physician Yamil Singh MD Current Medications Medications (Trade) Dose Ordered Sig/Damaris Route PRN Reason Start Time Stop Time Status Last Admin Dose Admin Acetaminophen (Tylenol) 650 mg Q6H PRN ORAL Mild Pain/Temp > 100.5 02/08/19 23:15 03/10/19 23:14 Alprazolam (Xanax) 1 mg THREE TIMES A DAY PRN ORAL For Anxiety 02/08/19 23:15 02/15/19 23:14 02/09/19 17:10 Baclofen (Lioresal) 10 mg THREE TIMES A DAY PRN ORAL Muscle Spasm 02/08/19 23:15 03/10/19 23:14 02/09/19 13:25 Dextrose (Dextrose 50%) 25 ml Q30M PRN IV Hypoglycemia 02/08/19 22:30 03/10/19 22:29 Dextrose (Dextrose 50%) 50 ml Q30M PRN IV Hypoglycemia 02/08/19 22:30 03/10/19 22:29 Dextrose/Sodium Chloride 1,000 ml @ 75 mls/hr [id number] IV 02/08/19 22:21 03/10/19 22:20 02/10/19 14:13 Diphenhydramine HCl (Benadryl) 25 mg Q4HR PRN IVP Itching 02/08/19 23:15 03/10/19 23:14 Diphenhydramine HCl (Benadryl) 25 mg Q6H PRN ORAL Itching/Pruritis 02/08/19 22:30 03/10/19 22:29 02/10/19 11:10 Heparin Sodium (Porcine) (Heparin 5000 units/ml) 5,000 units EVERY 12 HOURS SUBQ 02/09/19 09:00 03/11/19 08:59 02/10/19 08:57 Hydromorphone HCl (Dilaudid) 0.5 mg Q4H PRN IVP Moderate Pain (Pain Scale 4-6) 02/08/19 23:15 02/15/19 23:14 02/09/19 15:13 Hydromorphone HCl (Dilaudid) 1 mg Q4H PRN IVP Severe Pain (Pain Scale 7-10) 02/08/19 23:15 02/15/19 23:14 02/10/19 11:02 Lidocaine (Lidoderm 5% PATCH) 1 patch DAILY TDERMAL 02/09/19 09:00 03/11/19 08:59 02/10/19 08:57 Lorazepam (Ativan 2mg/ml 1ml) 1 mg EVERY 4 HOURS PRN IV agitation 02/08/19 22:30 02/15/19 22:29 Metoclopramide HCl (Reglan) 10 mg EVERY 6 HOURS PRN IVP servere nauasea 02/08/19 22:30 03/10/19 22:29 02/10/19 13:27 Nitroglycerin (Ntg) 0.4 mg Q5M X 3 DOSES PRN SL Prn Chest Pain 02/08/19 22:30 03/10/19 22:29 Ondansetron HCl (Zofran) 4 mg Q6H PRN IVP Nausea & Vomiting 02/08/19 22:30 03/10/19 22:29 02/10/19 08:57 Pantoprazole (Protonix) 40 mg ACBREAKFAST IV 02/09/19 06:30 03/11/19 06:29 02/10/19 06:16 Polyethylene Glycol (Miralax) 17 gm BID ORAL 02/10/19 09:00 03/10/19 22:29 02/10/19 08:56 Promethazine HCl (Phenergan) 25 mg Q6H PRN IM Refractory N/V 02/08/19 22:30 02/13/19 22:29 02/08/19 23:34 Quetiapine Fumarate (SEROqueL) 200 mg BEDTIME ORAL 02/09/19 21:00 03/11/19 20:59 02/09/19 21:56 Temazepam (Restoril) 15 mg HSPRN PRN ORAL Insomnia 02/08/19 22:30 02/15/19 22:29 Allergies: Coded Allergies: ACETAMINOPHEN (Verified Allergy, Unknown, 02/08/19) ARIPIPRAZOLE (Verified Allergy, Unknown, 02/08/19) FLUOXETINE (Verified Allergy, Unknown, 02/08/19) HYDROCODONE (Verified Allergy, Unknown, 02/08/19) IBUPROFEN (Verified Allergy, Unknown, 02/08/19) NITROFURANTOIN (Verified Allergy, Unknown, 02/08/19) OXYCODONE (Verified Allergy, Unknown, 02/08/19) PREGABALIN (Verified Allergy, Unknown, 02/08/19) ROS Limited/Unobtainable: No Constitutional: Reports: no symptoms HEENT: Reports: no symptoms Cardiovascular: Reports: no symptoms Respiratory: Reports: no symptoms Gastrointestinal/Abdominal: Reports: abdominal pain Genitourinary: Reports: no symptoms Neurologic/Psychiatric: Reports: no symptoms Subjective 63 YO F admited with abdominal pain, nausea and vomiting. Now acute pancreatitis. Cover for [facility] med-Dr Singh Objective Last Vital Signs Date Time Temp Pulse Resp B/P (MAP) Pulse Ox O2 Delivery O2 Flow Rate FiO2 02/10/19 12:00 97.7 18 145/81 (102) 97 02/10/19 09:00 Room Air 02/10/19 08:00 64 Intake and Output 02/09/19 02/10/19 19:00 07:00 Intake Total 1125 ml 450 ml Balance 1125 ml 450 ml Intake Oral 300 ml IV Total 825 ml 450 ml # Voids 2 3 # Bowel Movements 2 Objective PHYSICAL EXAMINATION: GENERAL: The patient is awake, responsive, and in no acute distress. HEAD AND NECK: Pupils are reactive to light. Extraocular movements are intact. NECK: Supple. No jugular venous distention. LUNGS: Good air entry. No wheeze or rales. HEART: Reveals S1, S2. Regular rhythm. No gallops. ABDOMEN: Soft, mildly obese, and tender in the epigastric area. No rebound tenderness. No fluid shift. EXTREMITIES: No cyanosis, clubbing, or edema. NEUROLOGIC: Cranial nerves II through XII grossly intact. Moving all the 4 extremities. Gait is intact. RECTAL/GENITOURINARY: Refused and deferred. PSYCHIATRIC: Mood and affect is intact. Assessment/Plan Assessment/Plan ASSESSMENT: 1. Abdominal pain, epigastric pain, most likely secondary to the acute on chronic pancreatitis. 2. Morbid obesity. 3. Fibromyalgia. 4. Lumbar spine stenosis. 5. History of bipolar disorder. PLAN: 1. Admit the patient to medical floor. 2. We will follow up laboratory. 3. Clear liquid diet. 4. We will hold off on antibiotics. 5. We will start the patient on pain management. 6. IV hydration. 7. Follow up with Dr. Gilmore in Pulmonary consultation due to the pulmonary lung nodule and gastrointestinal consultation. Code status is Full code. 8. We will advance the diet as tolerated. Poncho Cornejo MD Feb 10, 2019 15:18
[2019-02-10 16:00] VITALS: BP 152/77
--- NOTE | 2019-02-10 19:39 | NUR ---
HAND-OFF: Report given to Liam SANTIAGO.
[2019-02-10 20:00] VITALS: BP 132/82
[2019-02-10] MEDS: QUEtiapine 200mg tab ORAL SCH (20:58)
[2019-02-11] VITALS: BP 142/75
[2019-02-11] MEDS: D5 1/2NS 1,000 ML IV SCH ×2 (02:26→16:56)
[2019-02-11] MEDS: ALPRAZolam 0.5mg tab ORAL PRN (02:36)
[2019-02-11] MEDS: HYDROmorphone 1mg/ml Carpuject IVP PRN ×5 (03:53→23:08)
[2019-02-11 04:00] VITALS: BP 114/56
[2019-02-11 05:42] LABS: BASOPHILS % (AUTO) 1.6 % (0.0-2.0); HEMATOCRIT 36.6 % (37.0-47.0); HEMOGLOBIN 12.6 G/DL (12.0-16.0); LYMPHOCYTES % (AUTO) 45.2 % (20.0-45.0); MEAN CORPUSCULAR VOLUME 89 FL (80-99); MONOCYTES % (AUTO) 11.1 % (1.0-10.0); PLATELET COUNT 137 K/UL (150-450); RED CELL DISTRIBUTION WIDTH 11.9 % (11.6-14.8); WHITE BLOOD COUNT 3.6 K/UL (4.8-10.8)
[2019-02-11 05:59] LABS: ALANINE AMINOTRANSFERASE 36 U/L (12-78); ALBUMIN 3.3 G/DL (3.4-5.0); ALKALINE PHOSPHATASE 66 U/L (46-116); AMYLASE 78 U/L (25-115); ANION GAP 6 mmol/L (5-15); ASPARTATE AMINO TRANSFERASE 21 U/L (15-37); BILIRUBIN,TOTAL 0.5 MG/DL (0.2-1.0); BLOOD UREA NITROGEN 6 mg/dL (7-18); CALCIUM 8.5 MG/DL (8.5-10.1); CARBON DIOXIDE 30 MMOL/L (21-32); CHLORIDE 108 MMOL/L (98-107); CREATININE 0.7 MG/DL (0.55-1.30); POTASSIUM 3.7 MMOL/L (3.5-5.1); SODIUM 144 MMOL/L (136-145)
[2019-02-11] MEDS: Pantoprazole Inj IV SCH (05:59)
[2019-02-11] MEDS: Sucralfate 1gm tab ORAL SCH ×3 (05:59→16:55)
--- NOTE | 2019-02-11 07:35 | NUR ---
NURSE NOTES: Received report from Liam SANTIAGO. Patient is awake and oriented, no acute distress noted, reporting abdominal pain rated 6/10, patient states "I'm starting to feel better", patient is reporting nausea, medicated per order. IVF running per order, IV intact, patent. Updated on plan of care for the day. Side rails upx2, bed low and locked, call light within reach.
--- NOTE | 2019-02-11 07:35 | NUR ---
HAND-OFF: Report given to Dionne cruz.
--- NOTE | 2019-02-11 07:37 | General Progress Note ---
Assessment/Plan Problem List: (1) Pancreatitis ICD Codes: K85.90 - Acute pancreatitis without necrosis or infection, unspecified SNOMED: 35349647 (2) Recurrent pancreatitis ICD Codes: K85.90 - Acute pancreatitis without necrosis or infection, unspecified SNOMED: 222551584 (3) Abdominal pain ICD Codes: R10.9 - Unspecified abdominal pain SNOMED: 53444904 (4) Pulmonary nodule ICD Codes: R91.1 - Solitary pulmonary nodule SNOMED: 015704303 (5) Fibromyalgia ICD Codes: M79.7 - Fibromyalgia SNOMED: 892725615 (6) Spinal stenosis ICD Codes: M48.00 - Spinal stenosis, site unspecified SNOMED: 55002828 (7) Diverticulosis ICD Codes: K57.90 - Diverticulosis of intestine, part unspecified, without perforation or abscess without bleeding SNOMED: 006414292 Assessment/Plan: [facility] records reviewed advance diet to low fat fu labs pain control bowel regimen Subjective ROS Limited/Unobtainable: Yes Allergies: Coded Allergies: ACETAMINOPHEN (Verified Allergy, Unknown, 02/08/19) ARIPIPRAZOLE (Verified Allergy, Unknown, 02/08/19) FLUOXETINE (Verified Allergy, Unknown, 02/08/19) HYDROCODONE (Verified Allergy, Unknown, 02/08/19) IBUPROFEN (Verified Allergy, Unknown, 02/08/19) NITROFURANTOIN (Verified Allergy, Unknown, 02/08/19) OXYCODONE (Verified Allergy, Unknown, 02/08/19) PREGABALIN (Verified Allergy, Unknown, 02/08/19) Objective Last 24 Hour Vital Signs Date Time Temp Pulse Resp B/P (MAP) Pulse Ox O2 Delivery O2 Flow Rate FiO2 02/11/19 04:00 97.2 58 19 114/56 (75) 94 02/11/19 00:00 97.8 61 18 142/75 (97) 97 02/10/19 21:00 Room Air 02/10/19 20:00 97.9 60 18 132/82 (99) 97 02/10/19 16:00 98.1 18 152/77 (102) 96 02/10/19 12:00 97.7 18 145/81 (102) 97 02/10/19 09:00 Room Air 02/10/19 08:00 98.3 64 16 156/93 (114) 97 Intake and Output 02/10/19 02/11/19 19:00 07:00 Intake Total 825 ml 1185 ml Balance 825 ml 1185 ml Intake Oral 360 ml IV Total 825 ml 825 ml # Voids 4 4 # Bowel Movements 1 Laboratory Tests 02/11/19 05:10: White Blood Count 3.6L, Red Blood Count 4.10L, Hemoglobin 12.6, Hematocrit 36.6L , Mean Corpuscular Volume 89, Mean Corpuscular Hemoglobin 30.8, Mean Corpuscular Hemoglobin Concent 34.6, Red Cell Distribution Width 11.9, Platelet Count 137L, Mean Platelet Volume 8.3, Neutrophils (%) (Auto) 40.0L, Lymphocytes (%) (Auto) 45.2H, Monocytes (%) (Auto) 11.1H, Eosinophils (%) (Auto) 2.0, Basophils (%) (Auto) 1.6, Sodium Level 144, Potassium Level 3.7, Chloride Level 108H, Carbon Dioxide Level 30, Anion Gap 6, Blood Urea Nitrogen 6L, Creatinine 0.7, Estimat Glomerular Filtration Rate > 60, Glucose Level 115H, Calcium Level 8.5, Total Bilirubin 0.5, Aspartate Amino Transf (AST/SGOT) 21, Alanine Aminotransferase (ALT/SGPT) 36, Alkaline Phosphatase 66, Total Protein 6.7, Albumin 3.3L, Globulin 3.4, Albumin/Globulin Ratio 1.0, Amylase Level 78, Lipase 187 Height (Feet): 5 Height (Inches): 2.00 Weight (Pounds): 185 General Appearance: alert EENT: normal ENT inspection Neck: supple Cardiovascular: normal rate Respiratory/Chest: lungs clear Abdomen: soft, hypoactive bowel sounds, tender Extremities: non-tender Henrique Garcia MD Feb 11, 2019 07:37
[2019-02-11 08:00] VITALS: BP 135/71
[2019-02-11] MEDS: Miralax 17gm pkt ORAL SCH ×2 (08:37→18:02)
--- NOTE | 2019-02-11 08:47 | NUR ---
NURSE NOTES: Informed Dr. Gilmore patient's platelets are 137 today. MD ordered to hold heparin doses today. Order read back and entered.
[2019-02-11] MEDS: Heparin 5000 units/ml inj SUBQ SCH ×2 (08:49→20:49)
--- NOTE | 2019-02-11 08:58 | Pulmonology Progress Note ---
Assessment/Plan Problems: (1) Pulmonary nodule (2) Abdominal pain (3) Recurrent pancreatitis (4) Fibromyalgia (5) Spinal stenosis (6) Diverticulosis Assessment/Plan on clear liquid pain better controlled check electrolytes symptomatic treatment advance diet as tolerated Subjective ROS Limited/Unobtainable: No Interval Events: still c/o gas in upper abdomen Allergies: Coded Allergies: ACETAMINOPHEN (Verified Allergy, Unknown, 02/08/19) ARIPIPRAZOLE (Verified Allergy, Unknown, 02/08/19) FLUOXETINE (Verified Allergy, Unknown, 02/08/19) HYDROCODONE (Verified Allergy, Unknown, 02/08/19) IBUPROFEN (Verified Allergy, Unknown, 02/08/19) NITROFURANTOIN (Verified Allergy, Unknown, 02/08/19) OXYCODONE (Verified Allergy, Unknown, 02/08/19) PREGABALIN (Verified Allergy, Unknown, 02/08/19) Objective Last 24 Hour Vital Signs Date Time Temp Pulse Resp B/P (MAP) Pulse Ox O2 Delivery O2 Flow Rate FiO2 02/11/19 08:00 98.0 57 18 135/71 (92) 95 02/11/19 04:00 97.2 58 19 114/56 (75) 94 02/11/19 00:00 97.8 61 18 142/75 (97) 97 02/10/19 21:00 Room Air 02/10/19 20:00 97.9 60 18 132/82 (99) 97 02/10/19 16:00 98.1 18 152/77 (102) 96 02/10/19 12:00 97.7 18 145/81 (102) 97 02/10/19 09:00 Room Air Intake and Output 02/10/19 02/11/19 19:00 07:00 Intake Total 825 ml 1185 ml Balance 825 ml 1185 ml Intake Oral 360 ml IV Total 825 ml 825 ml # Voids 4 4 # Bowel Movements 1 Objective General Appearance: WD/WN Lines, tubes and drains: peripheral HEENT: normocephalic, atraumatic Neck: non-tender, normal alignment Respiratory/Chest: chest wall non-tender, lungs clear Cardiovascular/Chest: normal rate Extremities: normal range of motion, non-tender Skin Exam: normal pigmentation Laboratory Tests 02/11/19 05:10: White Blood Count 3.6L, Red Blood Count 4.10L, Hemoglobin 12.6, Hematocrit 36.6L , Mean Corpuscular Volume 89, Mean Corpuscular Hemoglobin 30.8, Mean Corpuscular Hemoglobin Concent 34.6, Red Cell Distribution Width 11.9, Platelet Count 137L, Mean Platelet Volume 8.3, Neutrophils (%) (Auto) 40.0L, Lymphocytes (%) (Auto) 45.2H, Monocytes (%) (Auto) 11.1H, Eosinophils (%) (Auto) 2.0, Basophils (%) (Auto) 1.6, Sodium Level 144, Potassium Level 3.7, Chloride Level 108H, Carbon Dioxide Level 30, Anion Gap 6, Blood Urea Nitrogen 6L, Creatinine 0.7, Estimat Glomerular Filtration Rate > 60, Glucose Level 115H, Calcium Level 8.5, Total Bilirubin 0.5, Aspartate Amino Transf (AST/SGOT) 21, Alanine Aminotransferase (ALT/SGPT) 36, Alkaline Phosphatase 66, Total Protein 6.7, Albumin 3.3L, Globulin 3.4, Albumin/Globulin Ratio 1.0, Amylase Level 78, Lipase 187 Current Medications Medications (Trade) Dose Ordered Sig/Damaris Route PRN Reason Start Time Stop Time Status Last Admin Dose Admin Acetaminophen (Tylenol) 650 mg Q6H PRN ORAL Mild Pain/Temp > 100.5 02/08/19 23:15 03/10/19 23:14 Alprazolam (Xanax) 1 mg THREE TIMES A DAY PRN ORAL For Anxiety 02/08/19 23:15 02/15/19 23:14 02/11/19 02:36 Baclofen (Lioresal) 10 mg THREE TIMES A DAY PRN ORAL Muscle Spasm 02/08/19 23:15 03/10/19 23:14 02/10/19 23:37 Dextrose (Dextrose 50%) 25 ml Q30M PRN IV Hypoglycemia 02/08/19 22:30 03/10/19 22:29 Dextrose (Dextrose 50%) 50 ml Q30M PRN IV Hypoglycemia 02/08/19 22:30 03/10/19 22:29 Dextrose/Sodium Chloride 1,000 ml @ 75 mls/hr [id number] IV 02/08/19 22:21 03/10/19 22:20 02/11/19 02:26 Diphenhydramine HCl (Benadryl) 25 mg Q4HR PRN IVP Itching 02/08/19 23:15 03/10/19 23:14 Diphenhydramine HCl (Benadryl) 25 mg Q6H PRN ORAL Itching/Pruritis 02/08/19 22:30 03/10/19 22:29 02/10/19 11:10 Heparin Sodium (Porcine) (Heparin 5000 units/ml) 5,000 units EVERY 12 HOURS SUBQ 02/09/19 09:00 03/11/19 08:59 02/10/19 20:59 Hydromorphone HCl (Dilaudid) 0.5 mg Q4H PRN IVP Moderate Pain (Pain Scale 4-6) 02/08/19 23:15 02/15/19 23:14 02/09/19 15:13 Hydromorphone HCl (Dilaudid) 1 mg Q4H PRN IVP Severe Pain (Pain Scale 7-10) 02/08/19 23:15 02/15/19 23:14 02/11/19 08:37 Lidocaine (Lidoderm 5% PATCH) 1 patch DAILY TDERMAL 02/09/19 09:00 03/11/19 08:59 02/11/19 08:37 Lorazepam (Ativan 2mg/ml 1ml) 1 mg EVERY 4 HOURS PRN IV agitation 02/08/19 22:30 02/15/19 22:29 Metoclopramide HCl (Reglan) 10 mg EVERY 6 HOURS PRN IVP servere nauasea 02/08/19 22:30 03/10/19 22:29 02/10/19 13:27 Nitroglycerin (Ntg) 0.4 mg Q5M X 3 DOSES PRN SL Prn Chest Pain 02/08/19 22:30 03/10/19 22:29 Ondansetron HCl (Zofran) 4 mg Q6H PRN IVP Nausea & Vomiting 02/08/19 22:30 03/10/19 22:29 02/11/19 07:30 Pantoprazole (Protonix) 40 mg ACBREAKFAST IV 02/09/19 06:30 03/11/19 06:29 02/11/19 05:59 Polyethylene Glycol (Miralax) 17 gm BID ORAL 02/10/19 09:00 03/10/19 22:29 02/11/19 08:37 Promethazine HCl (Phenergan) 25 mg Q6H PRN IM Refractory N/V 02/08/19 22:30 02/13/19 22:29 02/08/19 23:34 Quetiapine Fumarate (SEROqueL) 200 mg BEDTIME ORAL 02/09/19 21:00 03/11/19 20:59 02/10/19 20:58 Sucralfate (Carafate) 1 gm TIAC ORAL 02/11/19 06:30 03/13/19 06:29 02/11/19 05:59 Temazepam (Restoril) 15 mg HSPRN PRN ORAL Insomnia 02/08/19 22:30 02/15/19 22:29 Frankie Gilmore MD Feb 11, 2019 08:58
[2019-02-11] MEDS ORDERED: D5 1/2NS 1000ml IV ONE (09:11)
[2019-02-11 12:00] VITALS: BP 147/73
--- NOTE | 2019-02-11 14:43 | Internal Med Progress Note ---
Subjective Date of Service: Feb 11, 2019 Physician Name Poncho Cornejo Attending Physician Yamil Singh MD Current Medications Medications (Trade) Dose Ordered Sig/Damaris Route PRN Reason Start Time Stop Time Status Last Admin Dose Admin Acetaminophen (Tylenol) 650 mg Q6H PRN ORAL Mild Pain/Temp > 100.5 02/08/19 23:15 03/10/19 23:14 Alprazolam (Xanax) 1 mg THREE TIMES A DAY PRN ORAL For Anxiety 02/08/19 23:15 02/15/19 23:14 02/11/19 02:36 Baclofen (Lioresal) 10 mg THREE TIMES A DAY PRN ORAL Muscle Spasm 02/08/19 23:15 03/10/19 23:14 02/10/19 23:37 Dextrose (Dextrose 50%) 25 ml Q30M PRN IV Hypoglycemia 02/08/19 22:30 03/10/19 22:29 Dextrose (Dextrose 50%) 50 ml Q30M PRN IV Hypoglycemia 02/08/19 22:30 03/10/19 22:29 Dextrose/Sodium Chloride 1,000 ml @ 75 mls/hr [id number] IV 02/08/19 22:21 03/10/19 22:20 02/11/19 02:26 Diphenhydramine HCl (Benadryl) 25 mg Q4HR PRN IVP Itching 02/08/19 23:15 03/10/19 23:14 Diphenhydramine HCl (Benadryl) 25 mg Q6H PRN ORAL Itching/Pruritis 02/08/19 22:30 03/10/19 22:29 02/11/19 10:00 Heparin Sodium (Porcine) (Heparin 5000 units/ml) 5,000 units EVERY 12 HOURS SUBQ 02/09/19 09:00 03/11/19 08:59 02/10/19 20:59 Hydromorphone HCl (Dilaudid) 0.5 mg Q4H PRN IVP Moderate Pain (Pain Scale 4-6) 02/08/19 23:15 02/15/19 23:14 02/09/19 15:13 Hydromorphone HCl (Dilaudid) 1 mg Q4H PRN IVP Severe Pain (Pain Scale 7-10) 02/08/19 23:15 02/15/19 23:14 02/11/19 13:51 Lidocaine (Lidoderm 5% PATCH) 1 patch DAILY TDERMAL 02/09/19 09:00 03/11/19 08:59 02/11/19 08:37 Lorazepam (Ativan 2mg/ml 1ml) 1 mg EVERY 4 HOURS PRN IV agitation 02/08/19 22:30 02/15/19 22:29 Metoclopramide HCl (Reglan) 10 mg EVERY 6 HOURS PRN IVP servere nauasea 02/08/19 22:30 03/10/19 22:29 02/10/19 13:27 Nitroglycerin (Ntg) 0.4 mg Q5M X 3 DOSES PRN SL Prn Chest Pain 02/08/19 22:30 03/10/19 22:29 Ondansetron HCl (Zofran) 4 mg Q6H PRN IVP Nausea & Vomiting 02/08/19 22:30 03/10/19 22:29 02/11/19 13:51 Pantoprazole (Protonix) 40 mg ACBREAKFAST IV 02/09/19 06:30 03/11/19 06:29 02/11/19 05:59 Polyethylene Glycol (Miralax) 17 gm BID ORAL 02/10/19 09:00 03/10/19 22:29 02/11/19 08:37 Promethazine HCl (Phenergan) 25 mg Q6H PRN IM Refractory N/V 02/08/19 22:30 02/13/19 22:29 02/08/19 23:34 Quetiapine Fumarate (SEROqueL) 200 mg BEDTIME ORAL 02/09/19 21:00 03/11/19 20:59 02/10/19 20:58 Sucralfate (Carafate) 1 gm TIAC ORAL 02/11/19 06:30 03/13/19 06:29 02/11/19 11:16 Temazepam (Restoril) 15 mg HSPRN PRN ORAL Insomnia 02/08/19 22:30 02/15/19 22:29 Allergies: Coded Allergies: ACETAMINOPHEN (Verified Allergy, Unknown, 02/08/19) ARIPIPRAZOLE (Verified Allergy, Unknown, 02/08/19) FLUOXETINE (Verified Allergy, Unknown, 02/08/19) HYDROCODONE (Verified Allergy, Unknown, 02/08/19) IBUPROFEN (Verified Allergy, Unknown, 02/08/19) NITROFURANTOIN (Verified Allergy, Unknown, 02/08/19) OXYCODONE (Verified Allergy, Unknown, 02/08/19) PREGABALIN (Verified Allergy, Unknown, 02/08/19) ROS Limited/Unobtainable: No Constitutional: Reports: no symptoms HEENT: Reports: no symptoms Cardiovascular: Reports: no symptoms Respiratory: Reports: no symptoms Gastrointestinal/Abdominal: Reports: abdominal pain Genitourinary: Reports: no symptoms Neurologic/Psychiatric: Reports: no symptoms Subjective 63 YO F admited with abdominal pain, nausea and vomiting. Now acute pancreatitis. Cover for Int salomon-Dr Singh Objective Last Vital Signs Date Time Temp Pulse Resp B/P (MAP) Pulse Ox O2 Delivery O2 Flow Rate FiO2 02/11/19 12:00 98.0 58 16 147/73 (97) 99 02/11/19 09:00 Room Air Laboratory Tests Test 02/11/19 05:10 White Blood Count 3.6 K/UL (4.8-10.8) L Red Blood Count 4.10 M/UL (4.20-5.40) L Hemoglobin 12.6 G/DL (12.0-16.0) Hematocrit 36.6 % (37.0-47.0) L Mean Corpuscular Volume 89 FL (80-99) Mean Corpuscular Hemoglobin 30.8 PG (27.0-31.0) Mean Corpuscular Hemoglobin Concent 34.6 G/DL (32.0-36.0) Red Cell Distribution Width 11.9 % (11.6-14.8) Platelet Count 137 K/UL (150-450) L Mean Platelet Volume 8.3 FL (6.5-10.1) Neutrophils (%) (Auto) 40.0 % (45.0-75.0) L Lymphocytes (%) (Auto) 45.2 % (20.0-45.0) H Monocytes (%) (Auto) 11.1 % (1.0-10.0) H Eosinophils (%) (Auto) 2.0 % (0.0-3.0) Basophils (%) (Auto) 1.6 % (0.0-2.0) Sodium Level 144 MMOL/L (136-145) Potassium Level 3.7 MMOL/L (3.5-5.1) Chloride Level 108 MMOL/L (98-107) H Carbon Dioxide Level 30 MMOL/L (21-32) Anion Gap 6 mmol/L (5-15) Blood Urea Nitrogen 6 mg/dL (7-18) L Creatinine 0.7 MG/DL (0.55-1.30) Estimat Glomerular Filtration Rate > 60 mL/min (>60) Glucose Level 115 MG/DL (74-106) H Calcium Level 8.5 MG/DL (8.5-10.1) Total Bilirubin 0.5 MG/DL (0.2-1.0) Aspartate Amino Transf (AST/SGOT) 21 U/L (15-37) Alanine Aminotransferase (ALT/SGPT) 36 U/L (12-78) Alkaline Phosphatase 66 U/L (46-116) Total Protein 6.7 G/DL (6.4-8.2) Albumin 3.3 G/DL (3.4-5.0) L Globulin 3.4 g/dL Albumin/Globulin Ratio 1.0 (1.0-2.7) Amylase Level 78 U/L (25-115) Lipase 187 U/L (73-393) Intake and Output 02/10/19 02/11/19 19:00 07:00 Intake Total 825 ml 1185 ml Balance 825 ml 1185 ml Intake Oral 360 ml IV Total 825 ml 825 ml # Voids 4 4 # Bowel Movements 1 Objective PHYSICAL EXAMINATION: GENERAL: The patient is awake, responsive, and in no acute distress. HEAD AND NECK: Pupils are reactive to light. Extraocular movements are intact. NECK: Supple. No jugular venous distention. LUNGS: Good air entry. No wheeze or rales. HEART: Reveals S1, S2. Regular rhythm. No gallops. ABDOMEN: Soft, mildly obese, and tender in the epigastric area. No rebound tenderness. No fluid shift. EXTREMITIES: No cyanosis, clubbing, or edema. NEUROLOGIC: Cranial nerves II through XII grossly intact. Moving all the 4 extremities. Gait is intact. RECTAL/GENITOURINARY: Refused and deferred. PSYCHIATRIC: Mood and affect is intact. Assessment/Plan Assessment/Plan ASSESSMENT: 1. Abdominal pain, epigastric pain, most likely secondary to the acute on chronic pancreatitis. 2. Morbid obesity. 3. Fibromyalgia. 4. Lumbar spine stenosis. 5. History of bipolar disorder. PLAN: 1. Admit the patient to medical floor. 2. We will follow up laboratory. 3. Clear liquid diet. 4. We will hold off on antibiotics. 5. We will start the patient on pain management. 6. IV hydration. 7. Follow up with Dr. Gilmore in Pulmonary consultation due to the pulmonary lung nodule and gastrointestinal consultation. Code status is Full code. 8. tolerating low fat diet Poncho Cornejo MD Feb 11, 2019 14:43
[2019-02-11 16:00] VITALS: BP 155/69
--- NOTE | 2019-02-11 19:20 | NUR ---
HAND-OFF: Report given to Liam SANTIAGO.
--- NOTE | 2019-02-11 19:24 | NUR ---
NURSE NOTES: Received report from Dionne SANTIAGO. Rounding done with outgoing nurse. Patient is awake, and A/O x4. Patient c/o abdominal pain 6/10. Bed is lowest position. Call light within reach. Will continue to monitor.
[2019-02-11 20:00] VITALS: BP 155/81
[2019-02-11] MEDS: QUEtiapine 200mg tab ORAL SCH (20:48)
--- NOTE | 2019-02-11 23:31 | NUR ---
NURSE NOTES: Complaint of gas pain. No order for gas pain medication. Dr. Gilmore notified, awaiting for reply. Will continue to monitor.
[2019-02-12] VITALS: BP 148/74
[2019-02-12] MEDS: HYDROmorphone 1mg/ml Carpuject IVP PRN ×2 (03:28→03:54)
[2019-02-12] MEDS: D5 1/2NS 1,000 ML IV SCH ×2 (03:58→19:41)
[2019-02-12 04:00] VITALS: BP 154/84
[2019-02-12 05:34] LABS: BASOPHILS % (AUTO) 1.4 % (0.0-2.0); EOSINOPHILS % (AUTO) 1.5 % (0.0-3.0); HEMATOCRIT 39.3 % (37.0-47.0); HEMOGLOBIN 13.5 G/DL (12.0-16.0); LYMPHOCYTES % (AUTO) 35.6 % (20.0-45.0); MEAN CORPUSCULAR VOLUME 89 FL (80-99); MONOCYTES % (AUTO) 13.1 % (1.0-10.0); NEUTROPHILS % (AUTO) 48.5 % (45.0-75.0); PLATELET COUNT 146 K/UL (150-450); RED BLOOD COUNT 4.39 M/UL (4.20-5.40); RED CELL DISTRIBUTION WIDTH 12.1 % (11.6-14.8); WHITE BLOOD COUNT 4.1 K/UL (4.8-10.8)
[2019-02-12] MEDS: Pantoprazole Inj IV SCH (05:38)
[2019-02-12] MEDS: Sucralfate 1gm tab ORAL SCH ×3 (05:38→17:31)
[2019-02-12] MEDS: ALPRAZolam 0.5mg tab ORAL PRN ×2 (05:47→17:30)
[2019-02-12 06:02] LABS: ANION GAP 7 mmol/L (5-15); BLOOD UREA NITROGEN 7 mg/dL (7-18); CALCIUM 9.1 MG/DL (8.5-10.1); CARBON DIOXIDE 29 MMOL/L (21-32); CHLORIDE 106 MMOL/L (98-107); CREATININE 0.7 MG/DL (0.55-1.30); POTASSIUM 3.7 MMOL/L (3.5-5.1); SODIUM 142 MMOL/L (136-145)
--- NOTE | 2019-02-12 07:44 | NUR ---
HAND-OFF: Report given to JACK Petty. Pt in stable condition.
[2019-02-12 08:00] VITALS: BP 101/70
--- NOTE | 2019-02-12 08:23 | NUR ---
NURSE NOTES: Pt laying in bed verbalized concerns with nausea. Has not had an episode of vomitus, . Per outgoing report pt has been experiencing pain through the night. Plan of care to include pain management, monitoring s/s symptoms of nausea
[2019-02-12] MEDS: Metoclopramide 10mg/2ml Inj IVP PRN (08:36)
[2019-02-12] MEDS: Miralax 17gm pkt ORAL SCH ×2 (08:36→17:31)
[2019-02-12] MEDS: Hydromorphone 0.5mg/0.5ml inj IVP PRN ×2 (08:37→14:18)
[2019-02-12] MEDS: Heparin 5000 units/ml inj SUBQ SCH ×2 (09:00→21:00)
--- NOTE | 2019-02-12 09:45 | General Progress Note ---
Assessment/Plan Problem List: (1) Pancreatitis ICD Codes: K85.90 - Acute pancreatitis without necrosis or infection, unspecified SNOMED: 81310224 (2) Recurrent pancreatitis ICD Codes: K85.90 - Acute pancreatitis without necrosis or infection, unspecified SNOMED: 770698549 (3) Abdominal pain ICD Codes: R10.9 - Unspecified abdominal pain SNOMED: 64969944 (4) Pulmonary nodule ICD Codes: R91.1 - Solitary pulmonary nodule SNOMED: 831314103 (5) Fibromyalgia ICD Codes: M79.7 - Fibromyalgia SNOMED: 588948100 (6) Spinal stenosis ICD Codes: M48.00 - Spinal stenosis, site unspecified SNOMED: 73966095 (7) Diverticulosis ICD Codes: K57.90 - Diverticulosis of intestine, part unspecified, without perforation or abscess without bleeding SNOMED: 005760563 Assessment/Plan: [facility] records reviewed on diet to low fat fu labs pain control bowel regimen Subjective ROS Limited/Unobtainable: Yes Allergies: Coded Allergies: ACETAMINOPHEN (Verified Allergy, Unknown, 02/08/19) ARIPIPRAZOLE (Verified Allergy, Unknown, 02/08/19) FLUOXETINE (Verified Allergy, Unknown, 02/08/19) HYDROCODONE (Verified Allergy, Unknown, 02/08/19) IBUPROFEN (Verified Allergy, Unknown, 02/08/19) NITROFURANTOIN (Verified Allergy, Unknown, 02/08/19) OXYCODONE (Verified Allergy, Unknown, 02/08/19) PREGABALIN (Verified Allergy, Unknown, 02/08/19) Objective Last 24 Hour Vital Signs Date Time Temp Pulse Resp B/P (MAP) Pulse Ox O2 Delivery O2 Flow Rate FiO2 02/12/19 04:00 97.9 58 19 154/84 (107) 98 02/12/19 00:00 97.3 58 19 148/74 (98) 98 02/11/19 21:00 Room Air 02/11/19 20:00 98.3 65 18 155/81 (105) 97 02/11/19 16:00 98.2 59 16 155/69 (97) 98 02/11/19 12:00 98.0 58 16 147/73 (97) 99 Intake and Output 02/11/19 02/12/19 19:00 07:00 Intake Total 1525 ml 1645 ml Balance 1525 ml 1645 ml Intake Oral 700 ml 820 ml IV Total 825 ml 825 ml # Voids 3 3 Laboratory Tests 02/12/19 04:45: White Blood Count 4.1L, Red Blood Count 4.39, Hemoglobin 13.5, Hematocrit 39.3, Mean Corpuscular Volume 89, Mean Corpuscular Hemoglobin 30.8, Mean Corpuscular Hemoglobin Concent 34.5, Red Cell Distribution Width 12.1, Platelet Count 146L, Mean Platelet Volume 8.3, Neutrophils (%) (Auto) 48.5, Lymphocytes (%) (Auto) 35.6, Monocytes (%) (Auto) 13.1H, Eosinophils (%) (Auto) 1.5, Basophils (%) ( Auto) 1.4, Sodium Level 142, Potassium Level 3.7, Chloride Level 106, Carbon Dioxide Level 29, Anion Gap 7, Blood Urea Nitrogen 7, Creatinine 0.7, Estimat Glomerular Filtration Rate > 60, Glucose Level 115H, Calcium Level 9.1 Height (Feet): 5 Height (Inches): 2.00 Weight (Pounds): 185 General Appearance: alert EENT: normal ENT inspection Neck: supple Cardiovascular: normal rate Respiratory/Chest: decreased breath sounds Abdomen: normal bowel sounds, non tender, soft Extremities: non-tender Henrique Garcia MD Feb 12, 2019 09:45
[2019-02-12 12:00] VITALS: BP 142/80
--- NOTE | 2019-02-12 13:49 | Pulmonology Progress Note ---
Assessment/Plan Problems: (1) Pulmonary nodule (2) Abdominal pain (3) Recurrent pancreatitis (4) Fibromyalgia (5) Spinal stenosis (6) Diverticulosis Assessment/Plan advance diet pain better controlled check electrolytes symptomatic treatment advance diet as tolerated Subjective ROS Limited/Unobtainable: No Constitutional: Reports: no symptoms Respiratory: Reports: no symptoms Allergies: Coded Allergies: ACETAMINOPHEN (Verified Allergy, Unknown, 02/08/19) ARIPIPRAZOLE (Verified Allergy, Unknown, 02/08/19) FLUOXETINE (Verified Allergy, Unknown, 02/08/19) HYDROCODONE (Verified Allergy, Unknown, 02/08/19) IBUPROFEN (Verified Allergy, Unknown, 02/08/19) NITROFURANTOIN (Verified Allergy, Unknown, 02/08/19) OXYCODONE (Verified Allergy, Unknown, 02/08/19) PREGABALIN (Verified Allergy, Unknown, 02/08/19) Objective Last 24 Hour Vital Signs Date Time Temp Pulse Resp B/P (MAP) Pulse Ox O2 Delivery O2 Flow Rate FiO2 02/12/19 04:00 97.9 58 19 154/84 (107) 98 02/12/19 00:00 97.3 58 19 148/74 (98) 98 02/11/19 21:00 Room Air 02/11/19 20:00 98.3 65 18 155/81 (105) 97 02/11/19 16:00 98.2 59 16 155/69 (97) 98 Intake and Output 02/11/19 02/12/19 19:00 07:00 Intake Total 1525 ml 1645 ml Balance 1525 ml 1645 ml Intake Oral 700 ml 820 ml IV Total 825 ml 825 ml # Voids 3 3 Objective General Appearance: WD/WN Lines, tubes and drains: peripheral HEENT: normocephalic, atraumatic Neck: non-tender, normal alignment Respiratory/Chest: chest wall non-tender, lungs clear Cardiovascular/Chest: normal rate Extremities: normal range of motion, non-tender Skin Exam: normal pigmentation Laboratory Tests 02/12/19 04:45: White Blood Count 4.1L, Red Blood Count 4.39, Hemoglobin 13.5, Hematocrit 39.3, Mean Corpuscular Volume 89, Mean Corpuscular Hemoglobin 30.8, Mean Corpuscular Hemoglobin Concent 34.5, Red Cell Distribution Width 12.1, Platelet Count 146L, Mean Platelet Volume 8.3, Neutrophils (%) (Auto) 48.5, Lymphocytes (%) (Auto) 35.6, Monocytes (%) (Auto) 13.1H, Eosinophils (%) (Auto) 1.5, Basophils (%) ( Auto) 1.4, Sodium Level 142, Potassium Level 3.7, Chloride Level 106, Carbon Dioxide Level 29, Anion Gap 7, Blood Urea Nitrogen 7, Creatinine 0.7, Estimat Glomerular Filtration Rate > 60, Glucose Level 115H, Calcium Level 9.1 Current Medications Medications (Trade) Dose Ordered Sig/Damaris Route PRN Reason Start Time Stop Time Status Last Admin Dose Admin Acetaminophen (Tylenol) 650 mg Q6H PRN ORAL Mild Pain/Temp > 100.5 02/08/19 23:15 03/10/19 23:14 Al Hydroxide/Mg Hydroxide (Mylanta) 30 ml Q6H PRN ORAL Abdominal cramps 02/12/19 12:45 03/14/19 12:44 02/12/19 12:55 Alprazolam (Xanax) 1 mg THREE TIMES A DAY PRN ORAL For Anxiety 02/08/19 23:15 02/15/19 23:14 02/12/19 05:47 Baclofen (Lioresal) 10 mg THREE TIMES A DAY PRN ORAL Muscle Spasm 02/08/19 23:15 03/10/19 23:14 02/12/19 12:55 Dextrose (Dextrose 50%) 25 ml Q30M PRN IV Hypoglycemia 02/08/19 22:30 03/10/19 22:29 Dextrose (Dextrose 50%) 50 ml Q30M PRN IV Hypoglycemia 02/08/19 22:30 03/10/19 22:29 Dextrose/Sodium Chloride 1,000 ml @ 75 mls/hr [id number] IV 02/08/19 22:21 03/10/19 22:20 02/12/19 03:58 Diphenhydramine HCl (Benadryl) 25 mg Q4HR PRN IVP Itching 02/08/19 23:15 03/10/19 23:14 Diphenhydramine HCl (Benadryl) 25 mg Q6H PRN ORAL Itching/Pruritis 02/08/19 22:30 03/10/19 22:29 02/12/19 04:54 Heparin Sodium (Porcine) (Heparin 5000 units/ml) 5,000 units EVERY 12 HOURS SUBQ 02/09/19 09:00 03/11/19 08:59 02/10/19 20:59 Hydromorphone HCl (Dilaudid) 0.5 mg Q4H PRN IVP Moderate Pain (Pain Scale 4-6) 02/08/19 23:15 02/15/19 23:14 02/12/19 08:37 Hydromorphone HCl (Dilaudid) 1 mg Q4H PRN IVP Severe Pain (Pain Scale 7-10) 02/08/19 23:15 02/15/19 23:14 02/12/19 03:54 Lidocaine (Lidoderm 5% PATCH) 1 patch DAILY TDERMAL 02/09/19 09:00 03/11/19 08:59 02/12/19 08:36 Lorazepam (Ativan 2mg/ml 1ml) 1 mg EVERY 4 HOURS PRN IV agitation 02/08/19 22:30 02/15/19 22:29 Metoclopramide HCl (Reglan) 10 mg EVERY 6 HOURS PRN IVP servere nauasea 02/08/19 22:30 03/10/19 22:29 02/12/19 08:36 Nitroglycerin (Ntg) 0.4 mg Q5M X 3 DOSES PRN SL Prn Chest Pain 02/08/19 22:30 03/10/19 22:29 Ondansetron HCl (Zofran) 4 mg Q6H PRN IVP Nausea & Vomiting 02/08/19 22:30 03/10/19 22:29 02/12/19 12:55 Pantoprazole (Protonix) 40 mg ACBREAKFAST IV 02/09/19 06:30 03/11/19 06:29 02/12/19 05:38 Polyethylene Glycol (Miralax) 17 gm BID ORAL 02/10/19 09:00 03/10/19 22:29 02/12/19 08:36 Promethazine HCl (Phenergan) 25 mg Q6H PRN IM Refractory N/V 02/08/19 22:30 02/13/19 22:29 02/08/19 23:34 Quetiapine Fumarate (SEROqueL) 200 mg BEDTIME ORAL 02/09/19 21:00 03/11/19 20:59 02/11/19 20:48 Sucralfate (Carafate) 1 gm TIAC ORAL 02/11/19 06:30 03/13/19 06:29 02/12/19 12:55 Temazepam (Restoril) 15 mg HSPRN PRN ORAL Insomnia 02/08/19 22:30 02/15/19 22:29 Frankie Gilmore MD Feb 12, 2019 13:49
[2019-02-12 16:00] VITALS: BP 149/90
--- NOTE | 2019-02-12 19:11 | Internal Med Progress Note ---
Subjective Date of Service: Feb 12, 2019 Physician Name Cornejo,Poncho Attending Physician Yamil Singh MD Current Medications Medications (Trade) Dose Ordered Sig/Damaris Route PRN Reason Start Time Stop Time Status Last Admin Dose Admin Acetaminophen (Tylenol) 650 mg Q6H PRN ORAL Mild Pain/Temp > 100.5 02/08/19 23:15 03/10/19 23:14 Al Hydroxide/Mg Hydroxide (Mylanta) 30 ml Q6H PRN ORAL Abdominal cramps 02/12/19 12:45 03/14/19 12:44 02/12/19 12:55 Alprazolam (Xanax) 1 mg THREE TIMES A DAY PRN ORAL For Anxiety 02/08/19 23:15 02/15/19 23:14 02/12/19 17:30 Baclofen (Lioresal) 10 mg THREE TIMES A DAY PRN ORAL Muscle Spasm 02/08/19 23:15 03/10/19 23:14 02/12/19 12:55 Dextrose (Dextrose 50%) 25 ml Q30M PRN IV Hypoglycemia 02/08/19 22:30 03/10/19 22:29 Dextrose (Dextrose 50%) 50 ml Q30M PRN IV Hypoglycemia 02/08/19 22:30 03/10/19 22:29 Dextrose/Sodium Chloride 1,000 ml @ 75 mls/hr [id number] IV 02/08/19 22:21 03/10/19 22:20 02/12/19 03:58 Diphenhydramine HCl (Benadryl) 25 mg Q4HR PRN IVP Itching 02/08/19 23:15 03/10/19 23:14 Diphenhydramine HCl (Benadryl) 25 mg Q6H PRN ORAL Itching/Pruritis 02/08/19 22:30 03/10/19 22:29 02/12/19 04:54 Heparin Sodium (Porcine) (Heparin 5000 units/ml) 5,000 units EVERY 12 HOURS SUBQ 02/09/19 09:00 03/11/19 08:59 02/10/19 20:59 Hydromorphone HCl (Dilaudid) 0.5 mg Q4H PRN IVP Moderate Pain (Pain Scale 4-6) 02/08/19 23:15 02/15/19 23:14 02/12/19 14:18 Hydromorphone HCl (Dilaudid) 1 mg Q4H PRN IVP Severe Pain (Pain Scale 7-10) 02/08/19 23:15 02/15/19 23:14 02/12/19 03:54 Lidocaine (Lidoderm 5% PATCH) 1 patch DAILY TDERMAL 02/09/19 09:00 03/11/19 08:59 02/12/19 08:36 Lorazepam (Ativan 2mg/ml 1ml) 1 mg EVERY 4 HOURS PRN IV agitation 02/08/19 22:30 02/15/19 22:29 Metoclopramide HCl (Reglan) 10 mg EVERY 6 HOURS PRN IVP servere nauasea 02/08/19 22:30 03/10/19 22:29 02/12/19 08:36 Nitroglycerin (Ntg) 0.4 mg Q5M X 3 DOSES PRN SL Prn Chest Pain 02/08/19 22:30 03/10/19 22:29 Ondansetron HCl (Zofran) 4 mg Q6H PRN IVP Nausea & Vomiting 02/08/19 22:30 03/10/19 22:29 02/12/19 12:55 Pantoprazole (Protonix) 40 mg ACBREAKFAST IV 02/09/19 06:30 03/11/19 06:29 02/12/19 05:38 Polyethylene Glycol (Miralax) 17 gm BID ORAL 02/10/19 09:00 03/10/19 22:29 02/12/19 17:31 Promethazine HCl (Phenergan) 25 mg Q6H PRN IM Refractory N/V 02/08/19 22:30 02/13/19 22:29 02/08/19 23:34 Quetiapine Fumarate (SEROqueL) 200 mg BEDTIME ORAL 02/09/19 21:00 03/11/19 20:59 02/11/19 20:48 Sucralfate (Carafate) 1 gm TIAC ORAL 02/11/19 06:30 03/13/19 06:29 02/12/19 17:31 Temazepam (Restoril) 15 mg HSPRN PRN ORAL Insomnia 02/08/19 22:30 02/15/19 22:29 Allergies: Coded Allergies: ACETAMINOPHEN (Verified Allergy, Unknown, 02/08/19) ARIPIPRAZOLE (Verified Allergy, Unknown, 02/08/19) FLUOXETINE (Verified Allergy, Unknown, 02/08/19) HYDROCODONE (Verified Allergy, Unknown, 02/08/19) IBUPROFEN (Verified Allergy, Unknown, 02/08/19) NITROFURANTOIN (Verified Allergy, Unknown, 02/08/19) OXYCODONE (Verified Allergy, Unknown, 02/08/19) PREGABALIN (Verified Allergy, Unknown, 02/08/19) ROS Limited/Unobtainable: No Constitutional: Reports: no symptoms HEENT: Reports: no symptoms Cardiovascular: Reports: no symptoms Respiratory: Reports: no symptoms Gastrointestinal/Abdominal: Reports: abdominal pain Genitourinary: Reports: no symptoms Neurologic/Psychiatric: Reports: no symptoms Subjective 63 YO F admited with abdominal pain, nausea and vomiting. Now acute pancreatitis. Cover for Int salomon-Dr Singh Objective Last Vital Signs Date Time Temp Pulse Resp B/P (MAP) Pulse Ox O2 Delivery O2 Flow Rate FiO2 02/12/19 16:00 98.5 56 20 149/90 (109) 97 02/12/19 09:00 Room Air Laboratory Tests Test 02/12/19 04:45 White Blood Count 4.1 K/UL (4.8-10.8) L Red Blood Count 4.39 M/UL (4.20-5.40) Hemoglobin 13.5 G/DL (12.0-16.0) Hematocrit 39.3 % (37.0-47.0) Mean Corpuscular Volume 89 FL (80-99) Mean Corpuscular Hemoglobin 30.8 PG (27.0-31.0) Mean Corpuscular Hemoglobin Concent 34.5 G/DL (32.0-36.0) Red Cell Distribution Width 12.1 % (11.6-14.8) Platelet Count 146 K/UL (150-450) L Mean Platelet Volume 8.3 FL (6.5-10.1) Neutrophils (%) (Auto) 48.5 % (45.0-75.0) Lymphocytes (%) (Auto) 35.6 % (20.0-45.0) Monocytes (%) (Auto) 13.1 % (1.0-10.0) H Eosinophils (%) (Auto) 1.5 % (0.0-3.0) Basophils (%) (Auto) 1.4 % (0.0-2.0) Sodium Level 142 MMOL/L (136-145) Potassium Level 3.7 MMOL/L (3.5-5.1) Chloride Level 106 MMOL/L (98-107) Carbon Dioxide Level 29 MMOL/L (21-32) Anion Gap 7 mmol/L (5-15) Blood Urea Nitrogen 7 mg/dL (7-18) Creatinine 0.7 MG/DL (0.55-1.30) Estimat Glomerular Filtration Rate > 60 mL/min (>60) Glucose Level 115 MG/DL (74-106) H Calcium Level 9.1 MG/DL (8.5-10.1) Intake and Output 02/11/19 02/12/19 19:00 07:00 Intake Total 1525 ml 1645 ml Balance 1525 ml 1645 ml Intake Oral 700 ml 820 ml IV Total 825 ml 825 ml # Voids 3 3 Objective PHYSICAL EXAMINATION: GENERAL: The patient is awake, responsive, and in no acute distress. HEAD AND NECK: Pupils are reactive to light. Extraocular movements are intact. NECK: Supple. No jugular venous distention. LUNGS: Good air entry. No wheeze or rales. HEART: Reveals S1, S2. Regular rhythm. No gallops. ABDOMEN: Soft, mildly obese, and tender in the epigastric area. No rebound tenderness. No fluid shift. EXTREMITIES: No cyanosis, clubbing, or edema. NEUROLOGIC: Cranial nerves II through XII grossly intact. Moving all the 4 extremities. Gait is intact. RECTAL/GENITOURINARY: Refused and deferred. PSYCHIATRIC: Mood and affect is intact. Assessment/Plan Assessment/Plan ASSESSMENT: 1. Abdominal pain, epigastric pain, most likely secondary to the acute on chronic pancreatitis. 2. Morbid obesity. 3. Fibromyalgia. 4. Lumbar spine stenosis. 5. History of bipolar disorder. PLAN: 1. Admit the patient to medical floor. 2. We will follow up laboratory. 3. Clear liquid diet. 4. We will hold off on antibiotics. 5. We will start the patient on pain management. 6. IV hydration. 7. Follow up with Dr. Gilmore in Pulmonary consultation due to the pulmonary lung nodule and gastrointestinal consultation=Jose. 8. Code status isFull code. 9. tolerating low fat diet Poncho Cornejo MD Feb 12, 2019 19:11
--- NOTE | 2019-02-12 19:27 | NUR ---
NURSE NOTES: here earlier in shift seen pt informed that she was not ready to be discharge yet. Has possible discharge home. Pt provided with nausea medication and medication for gas. Ambulated in hallway. States she has to eat slowly to tolerate meal did not have an episode of vomitus today. here to sit with pt for a few hours. Current plan will be follolwed had a BM today. Currently sitting up in chair watching tv
--- NOTE | 2019-02-12 19:31 | NUR ---
HAND-OFF: Report given to Evy SANTIAGO.
[2019-02-12 20:00] VITALS: BP 105/74
[2019-02-12] MEDS: QUEtiapine 200mg tab ORAL SCH (21:02)
--- NOTE | 2019-02-12 21:45 | NUR ---
NURSES NOTE: Met pt ambulating in hallway. A/O x4, expressive, able to verbalize needs. No outward s/s of distress noted. Breathing is even and unlabored on RA. Fluids D/C. IV site L hand intact. No complaints of pain but pt states she has gas. Possible meds will be looked into and administered according to eMAR. 2000 vital signs WNL. Bed at lowest level, call light within reach. Pt will continue to be monitored
[2019-02-13] MEDS: Hydromorphone 0.5mg/0.5ml inj IVP PRN ×2 (01:11→12:03)
[2019-02-13 04:00] VITALS: BP 140/86
[2019-02-13] MEDS: Pantoprazole Inj IV SCH (05:38)
[2019-02-13] MEDS: Sucralfate 1gm tab ORAL SCH ×2 (05:39→11:20)
[2019-02-13] MEDS: HYDROmorphone 1mg/ml Carpuject IVP PRN (05:39)
--- NOTE | 2019-02-13 07:14 | General Progress Note ---
Assessment/Plan Problem List: (1) Pancreatitis ICD Codes: K85.90 - Acute pancreatitis without necrosis or infection, unspecified SNOMED: 01240293 (2) Recurrent pancreatitis ICD Codes: K85.90 - Acute pancreatitis without necrosis or infection, unspecified SNOMED: 266878563 (3) Abdominal pain ICD Codes: R10.9 - Unspecified abdominal pain SNOMED: 89900692 (4) Pulmonary nodule ICD Codes: R91.1 - Solitary pulmonary nodule SNOMED: 501722685 (5) Fibromyalgia ICD Codes: M79.7 - Fibromyalgia SNOMED: 725458104 (6) Spinal stenosis ICD Codes: M48.00 - Spinal stenosis, site unspecified SNOMED: 70028131 (7) Diverticulosis ICD Codes: K57.90 - Diverticulosis of intestine, part unspecified, without perforation or abscess without bleeding SNOMED: 696378378 [facility] to low fat fu labs pain control bowel regimen wants to go home ok to dc GI stand point Subjective Allergies: Coded Allergies: ACETAMINOPHEN (Verified Allergy, Unknown, 02/08/19) ARIPIPRAZOLE (Verified Allergy, Unknown, 02/08/19) FLUOXETINE (Verified Allergy, Unknown, 02/08/19) HYDROCODONE (Verified Allergy, Unknown, 02/08/19) IBUPROFEN (Verified Allergy, Unknown, 02/08/19) NITROFURANTOIN (Verified Allergy, Unknown, 02/08/19) OXYCODONE (Verified Allergy, Unknown, 02/08/19) PREGABALIN (Verified Allergy, Unknown, 02/08/19) Objective Last 24 Hour Vital Signs Date Time Temp Pulse Resp B/P (MAP) Pulse Ox O2 Delivery O2 Flow Rate FiO2 02/12/19 21:00 Room Air 02/12/19 20:00 97.2 61 18 105/74 (84) 95 02/12/19 16:00 98.5 56 20 149/90 (109) 97 02/12/19 12:00 97.8 58 18 142/80 (100) 96 02/12/19 09:00 Room Air 02/12/19 08:00 98.3 57 20 101/70 (80) 98 Intake and Output 02/12/19 02/13/19 19:00 07:00 # Voids 3 Height (Feet): 5 Height (Inches): 2.00 Weight (Pounds): 185 General Appearance: alert EENT: normal ENT inspection Neck: supple Cardiovascular: normal rate Respiratory/Chest: lungs clear Abdomen: normal bowel sounds, non tender, soft Extremities: non-tender Henrique Garcia MD Feb 13, 2019 07:14
--- NOTE | 2019-02-13 07:40 | NUR ---
NURSE NOTES: WALKING ROUNDS DONE WITH OUTGOING RN. PATIENT UP AND AMBULATING. DENIES ANY ABDOMINAL PAIN. TOLERATING LOW FAT DIET. QUESTIONS ANSWERED, NEEDS MET.DISCUSSED PLAN OF CARE FOR THE DAY. VERBALIZED UNDERSTANDING.BED IN LOW AND LOCKED POSITION. CALL LIGHT WITHIN REACH.
--- NOTE | 2019-02-13 07:59 | NUR ---
HAND OFF: Report given to anthony Burton. Patient left in stable condition. Pt had 2 formed 1 loose bowel. Endorsed to oncoming nurse.
[2019-02-13 08:00] VITALS: BP 151/83
[2019-02-13] MEDS: Heparin 5000 units/ml inj SUBQ SCH (09:00)
[2019-02-13] MEDS: Miralax 17gm pkt ORAL SCH (09:00)
[2019-02-13] MEDS: D5 1/2NS 1,000 ML IV SCH (09:01)
[2019-02-13 12:00] VITALS: BP 157/84
--- NOTE | 2019-02-13 12:00 | NUR ---
NURSE NOTES: DISCHARGE ORDER RECEIVED FROM PMD. PATIENT AWARE. SPOUSE AT BEDSIDE.
--- NOTE | 2019-02-13 12:11 | Pulmonology Progress Note ---
Assessment/Plan Problems: (1) Pulmonary nodule (2) Abdominal pain (3) Recurrent pancreatitis (4) Fibromyalgia (5) Spinal stenosis (6) Diverticulosis Assessment/Plan advance diet pain better controlled check electrolytes symptomatic treatment advance diet as tolerated Subjective ROS Limited/Unobtainable: No Constitutional: Reports: no symptoms HEENT: Repors: no symptoms Respiratory: Reports: no symptoms Allergies: Coded Allergies: ACETAMINOPHEN (Verified Allergy, Unknown, 02/08/19) ARIPIPRAZOLE (Verified Allergy, Unknown, 02/08/19) FLUOXETINE (Verified Allergy, Unknown, 02/08/19) HYDROCODONE (Verified Allergy, Unknown, 02/08/19) IBUPROFEN (Verified Allergy, Unknown, 02/08/19) NITROFURANTOIN (Verified Allergy, Unknown, 02/08/19) OXYCODONE (Verified Allergy, Unknown, 02/08/19) PREGABALIN (Verified Allergy, Unknown, 02/08/19) Objective Last 24 Hour Vital Signs Date Time Temp Pulse Resp B/P (MAP) Pulse Ox O2 Delivery O2 Flow Rate FiO2 02/13/19 09:00 Room Air 02/13/19 08:00 97.9 70 20 151/83 (105) 98 02/13/19 04:00 98.4 19 140/86 (104) 97 02/12/19 21:00 Room Air 02/12/19 20:00 97.2 61 18 105/74 (84) 95 02/12/19 16:00 98.5 56 20 149/90 (109) 97 Intake and Output 02/12/19 02/13/19 19:00 07:00 Intake Total 480 ml Balance 480 ml Intake Oral 480 ml # Voids 3 2 # Bowel Movements 3 Objective General Appearance: WD/WN Lines, tubes and drains: peripheral HEENT: normocephalic, atraumatic Neck: non-tender, normal alignment Respiratory/Chest: chest wall non-tender, lungs clear Cardiovascular/Chest: normal rate Extremities: normal range of motion, non-tender Skin Exam: normal pigmentation Current Medications Medications (Trade) Dose Ordered Sig/Damaris Route PRN Reason Start Time Stop Time Status Last Admin Dose Admin Acetaminophen (Tylenol) 650 mg Q6H PRN ORAL Mild Pain/Temp > 100.5 02/08/19 23:15 03/10/19 23:14 Al Hydroxide/Mg Hydroxide (Mylanta) 30 ml Q6H PRN ORAL Abdominal cramps 02/12/19 12:45 03/14/19 12:44 02/12/19 12:55 Alprazolam (Xanax) 1 mg THREE TIMES A DAY PRN ORAL For Anxiety 02/08/19 23:15 02/15/19 23:14 02/12/19 17:30 Baclofen (Lioresal) 10 mg THREE TIMES A DAY PRN ORAL Muscle Spasm 02/08/19 23:15 03/10/19 23:14 02/13/19 11:01 Dextrose (Dextrose 50%) 25 ml Q30M PRN IV Hypoglycemia 02/08/19 22:30 03/10/19 22:29 Dextrose (Dextrose 50%) 50 ml Q30M PRN IV Hypoglycemia 02/08/19 22:30 03/10/19 22:29 Dextrose/Sodium Chloride 1,000 ml @ 75 mls/hr [id number] IV 02/08/19 22:21 03/10/19 22:20 02/12/19 03:58 Diphenhydramine HCl (Benadryl) 25 mg Q4HR PRN IVP Itching 02/08/19 23:15 03/10/19 23:14 Diphenhydramine HCl (Benadryl) 25 mg Q6H PRN ORAL Itching/Pruritis 02/08/19 22:30 03/10/19 22:29 02/12/19 04:54 Heparin Sodium (Porcine) (Heparin 5000 units/ml) 5,000 units EVERY 12 HOURS SUBQ 02/09/19 09:00 03/11/19 08:59 02/10/19 20:59 Hydromorphone HCl (Dilaudid) 0.5 mg Q4H PRN IVP Moderate Pain (Pain Scale 4-6) 02/08/19 23:15 02/15/19 23:14 02/13/19 12:03 Hydromorphone HCl (Dilaudid) 1 mg Q4H PRN IVP Severe Pain (Pain Scale 7-10) 02/08/19 23:15 02/15/19 23:14 02/13/19 05:39 Lidocaine (Lidoderm 5% PATCH) 1 patch DAILY TDERMAL 02/09/19 09:00 03/11/19 08:59 02/13/19 09:06 Lorazepam (Ativan 2mg/ml 1ml) 1 mg EVERY 4 HOURS PRN IV agitation 02/08/19 22:30 02/15/19 22:29 Metoclopramide HCl (Reglan) 10 mg EVERY 6 HOURS PRN IVP servere nauasea 02/08/19 22:30 03/10/19 22:29 02/12/19 08:36 Nitroglycerin (Ntg) 0.4 mg Q5M X 3 DOSES PRN SL Prn Chest Pain 02/08/19 22:30 03/10/19 22:29 Ondansetron HCl (Zofran) 4 mg Q6H PRN IVP Nausea & Vomiting 02/08/19 22:30 03/10/19 22:29 02/12/19 12:55 Pantoprazole (Protonix) 40 mg ACBREAKFAST IV 02/09/19 06:30 03/11/19 06:29 02/13/19 05:38 Polyethylene Glycol (Miralax) 17 gm BID ORAL 02/10/19 09:00 03/10/19 22:29 02/12/19 17:31 Promethazine HCl (Phenergan) 25 mg Q6H PRN IM Refractory N/V 02/08/19 22:30 02/13/19 22:29 02/08/19 23:34 Quetiapine Fumarate (SEROqueL) 200 mg BEDTIME ORAL 02/09/19 21:00 03/11/19 20:59 02/12/19 21:02 Sucralfate (Carafate) 1 gm TIAC ORAL 02/11/19 06:30 03/13/19 06:29 02/13/19 11:20 Temazepam (Restoril) 15 mg HSPRN PRN ORAL Insomnia 02/08/19 22:30 02/15/19 22:29 Frankie Gilmore MD Feb 13, 2019 12:11
[2019-02-13] MEDS ORDERED: SUCRALFATE1 GM ORAL (12:14)
[2019-02-13] MEDS ORDERED: MYLANTA30 M1 ORAL (12:14)
[2019-02-13] MEDS ORDERED: PROTONIX20 MG ORAL (12:14)
[2019-02-13] MEDS ORDERED: NORVASC5 MG ORAL (12:15)
--- NOTE | 2019-02-13 14:00 | NUR ---
NURSE NOTES: PATIENT DISCHARGE TO HOME. REVIEWED AND EXPLAINED DISCHARGE INSTRUCTIONS TO PATIENT AND SPOUSE. RX'S GIVEN. VERBALIZED UNDERSTANDING. WILL F/U PMD PRN. DISCHARGE PREPARATION CHECKLIST COMPLETED, PATIENT BELONGINGS VERIFIED AND SIGNED BY PATIENT. DISCHARGED PATIENT VIA WC TO THE CARE OF .
[2019-02-13] MEDS ORDERED: D5 1/2NS 1000ml IV ONE (14:37)
--- NOTE | 2019-02-15 13:10 | Discharge Summary ---
Discharge Summary Discharge Summary _ DATE OF ADMISSION: 02/08/2019 DATE OF DISCHARGE: 02/13/2019 DISCHARGED BY: Dr. Singh REASON FOR ADMISSION: 63 years old female with past medical history significant for fibromyalgia, spinal stenosis, status post lumbar spine surgery, chronic pancreatitis, status post ERCP with a stent placement, bipolar disorder , presented to the office complaining of abdominal pain, progressively worsening over the 5-day with associated nausea , vomiting and inability to tolerate oral intake. After initial evaluation patient went to [facility] emergency room , where the extensive work-up was done, including CT scan, which was unremarkable . However, patient continued to have unbearable pain; and was subsequently advised to come to the emergency room . CT scan of abdomen and pelvise reveled: -Fatty liver. -4 mm nodule right costophrenic sulcus. No further follow-up necessary if there is no significant smoking history or risk factors for lung carcinoma. -Colonic diverticulosis. No evidence of diverticulitis -Evidence of prior hysterectomy and cholecystectomy -Tiny left renal angiomyolipoma. Laboratory work-up revealed no leukocytosis, stable hemoglobin and hematocrit , renal parameters and electrolytes . Stable LFT. Urinalysis revealed no evidence of urinary tract infection. Lipase of 961. Patient subsequently admitted to the hospital with diagnosis of acute on chronic pancreatitis. CONSULTANTS: pulmonary Dr. Gilmore GI specialist Dr. Garcia [facility] COURSE: Patient admitted and started on IV hydration. Patient initially was kept NPO. Pain management was addressed. Symptomatic care provided. Patient subsequently started on clear liquid diet. Abdominal ultrasound demonstrated hepatomegaly, increased hepatic echogenicity compatible with a fatty change. Status post cholecystectomy, no evidence of dilated bile ducts. Tiny echogenic focus in the left renal sinus, likely representing small angiomyolipoma demonstrated on CT scan. Nonspecific prominence of the pancreatic duct. LFT and lipase were closely monitored. Lipase trended down to normal. LFTs and bilirubin remained stable. Patient slowly advanced to low-fat diet. Antiemetic provided as needed . Bowel regimen instituted. Supplemental oxygen was on board as needed to keep pulse oximetry above 92%. Pulse oximetry was stable on room air. No need to follow up on pulmonary nodule, given the small size and no risk factors. Home medication continued. Patient clinically stabilized and was ready for discharge FINAL DIAGNOSES: Acute on chronic pancreatitis Recurrent pancreatitis Abdominal pain/epigastric, most likely secondary to above Morbid obesity Lumbar spine stenosis Fibromyalgia History of bipolar disorder Pulmonary nodule Diverticulosis DISCHARGE MEDICATIONS: See Medication Reconciliation list DISCHARGE INSTRUCTIONS: Patient was discharged home. Follow-up with her primary care provider in 1 week. I have been assigned to dictate discharge summary for this account. I was not involved in the patient's management. Delia Otoole NP Feb 15, 2019 13:10
== END 2019-02-13 14:38 | disposition home or self-care (01) | DRG 440 ==
LOC: EDBEDREQ 18:52 → EMR 19:46 → EDBEDREQ 20:45 → 3E 21:09
DX: K85.90 Acute pancreatitis without necrosis or infection, unspecified (principal); E66.01 Morbid (severe) obesity due to excess calories; K86.1 Other chronic pancreatitis; M48.061 Spinal stenosis, lumbar region without neurogenic claudication; M79.7 Fibromyalgia; K57.90 Diverticulosis of intestine, part unspecified, without perforation or abscess without bleeding; F31.9 Bipolar disorder, unspecified; Z88.8 Allergy status to other drugs, medicaments and biological substances; Z88.6 Allergy status to analgesic agent; Z90.49 Acquired absence of other specified parts of digestive tract; R91.1 Solitary pulmonary nodule
CPT/HCPCS: 36415; 74176; 76700; 80048; 80053; 81003; 82150; 83690; 83735; 84100; 85025; 85730; 96374; 96375; 99285; J2405; J2765; J7030